=== PATIENT | male | born 1960 | race Caucasian/White ===

== ENCOUNTER → 2025-02-26 | Outpatient (CLI) | payer MEDICARE, OTHER ==
[2025-02-26 12:40] LABS: African American GFR (CKD) 89 (>60 ml/min/1.73 sqM); Blood Urea Nitrogen 31 mg/dL (9-20); Non-African American GFR(CKD) 77 (>60 ml/min/1.73 sqM)
--- NOTE | 2025-02-26 16:30 | CT ---
EXAMINATION TYPE: CT chest w con DATE OF EXAM: 02/26/2025 12:54 PM COMPARISON: Chest radiograph. CLINICAL INDICATION: Male, 64 years old with history of R91.8 OTHER NONSPECIFIC ABNORMAL FINDING OF L NICOLAS F; PHH, chest congestion TECHNIQUE: Multiple axial images were obtained through the chest. Sagittal and coronal reformats were created for review. MIP was performed on a separate workstation. Contrast used:100ml mL of Isovue 300 with IV Contrast (None if empty) Oral contrast used: (None if empty) CT DLP: 163.2 mGycm, Automated exposure control for dose reduction was used. FINDINGS: LUNGS/ PLEURA: No focal consolidation, pneumothorax or pleural effusion. 5 mm right upper lobe ground glass pulmonary nodule series 4 image 25. AIRWAY: Patent and unremarkable. HEART: Size within normal limits.Atherosclerosis of the arterial vasculature. Mild coronary artery ca lcifications present. MEDIASTINUM: No gross evidence of adenopathy. VASCULATURE: No aortic aneurysm. MUSCULOSKELETAL: Mild disc degeneration changes are present throughout the thoracolumbar spine second veronica to osteophyte formation and facet joint arthropathy. Moderate to severe scoliosis changes of the spine. SOFT TISSUES/LYMPH NODES: Unremarkable. LOWER NECK: No significant findings. UPPER ABDOMEN: Gallstone in the gallbladder lumen which is large measuring up to 27 mm. IMPRESSION: 1. No evidence for congestive heart failure. 2. No evidence for acute thoracic process. 3. Groundglass pulmonary nodule in the right upper lobe. No routine follow-up required. Follow up re commendations for incidental pulmonary nodules, if there are any, are per Fleischner?s [employer] or [employer]. https://radiopaedia.org/articles/fleischner-soci sjo-yntjyhsma-vbsqml-recommendations-1?lang=us 4. Large gallstone in the gallbladder. 5. Moderate to severe scoliosis changes of the spine. [facility], , 02/26/2025 4:28 PM
== END | disposition home or self-care (01) ==
LOC: RADCTMAIN 11:55
PROVIDERS: ATTEND Internal Medicine
DX: R91.8 Other nonspecific abnormal finding of lung field (principal); K80.20 Calculus of gallbladder without cholecystitis without obstruction; M41.00 Infantile idiopathic scoliosis, site unspecified
CPT/HCPCS: 82565; 84520; 71260; 36415; Q9967

== ENCOUNTER 2025-03-03 14:28 | Inpatient (IN) | payer MEDICARE, OTHER ==
--- NOTE | 2025-03-03 14:55 | ED ---
Extremity Problem HPI - General Source: patient, RN notes reviewed Mode of arrival: ambulatory Limitations: no limitations <Alissa Crawford - Last Filed: 03/03/25 14:54> - General Source: patient, RN notes reviewed Mode of arrival: ambulatory Limitations: no limitations <Skinny Parra - Last Filed: 03/03/25 20:52> - General Stated complaint: R foot swelling Time Seen by Provider: 03/03/25 14:54 - History of Present Illness Initial comments: Quick note: 64-year-old male presented the ER for evaluation of right foot pain and swelling. Patient states he is a known type II diabetic and is concerned of infection. He denies fevers or chills. (Alissa Crawford) Patient is a 64-year-old male present to the emergency department with concern for ulcer/infection of his foot. Patient states he just noticed this the past day or 2. Patient states only minimal discomfort. Patient does have history of diabetes. Patient states his blood sugars however not always well-controlled. (Skinny Parra) - Related Data Allergies Allergy/AdvReac Type Severity Reaction Status Date / Time No Known Allergies Allergy Verified 03/03/25 15:13 Review of Systems ROS Other: All systems not noted in ROS Statement are negative. <Alissa Crawford - Last Filed: 03/03/25 14:54> ROS Other: All systems not noted in ROS Statement are negative. Constitutional: Denies: fever Eyes: Denies: eye pain ENT: Denies: ear pain Respiratory: Denies: dyspnea Skin: Reports: as per HPI <Skinny Parra - Last Filed: 03/03/25 20:52> ROS Statement: Those systems with pertinent positive or pertinent negative responses have been documented in the HPI. General Exam <Alissa Crawford - Last Filed: 03/03/25 14:54> Limitations: no limitations General appearance: alert, in no apparent distress Head exam: Present: normocephalic Eye exam: Present: normal appearance Respiratory exam: Present: normal lung sounds bilaterally Cardiovascular Exam: Present: regular rate, normal rhythm GI/Abdominal exam: Present: soft. Absent: tenderness Extremities exam: Present: other (Right foot cellulitis) Neurological exam: Present: alert Psychiatric exam: Present: normal affect, normal mood Skin exam: Present: other (Patient has cellulitis majority, mostly distal right foot. Dorsally there is cellulitis and swelling mostly of the second toe with some ulcer formation. On the plantar side there is a large distal callus and ulcer formation proximal to the 1st through 3rd MTPs.) <Skinny Parra - Last Filed: 03/03/25 20:52> - General Exam Comments Initial Comments: Visual Physical Exam Vital signs reviewed General: Well-appearing, nontoxic, no acute distress. Head: Normocephalic, atraumatic Eyes: PERRLA, EOMI ENT: Airway patent Chest: Nonlabored breathing Skin: No visual rash, normal skin tone Neuro: Alert and oriented 3 Musculoskeletal: No gross abnormalities (Alissa Crawford) Course Vital Signs 03/03/25 03/03/25 15:09 20:15 Temperature 98.4 F 98.9 F Pulse Rate 100 98 Respiratory 19 16 Rate Blood Pressure 153/60 139/77 O2 Sat by Pulse 97 100 Oximetry Medical Decision Making <Alissa Crawford - Last Filed: 03/03/25 14:54> - Lab Data Result diagrams: 03/03/25 19:48 <Skinny Parra - Last Filed: 03/03/25 20:52> - Medical Decision Making I performed the quick note portion of this chart. Electronically signed by Alissa Crawford PA-C (Alissa Crawford) Was pt. sent in by a medical professional or institution ([facility], RETAIL MERCHANDISING MANAGER, urgent care, hospital, or [facility]...) When possible be specific @ -No Did you speak to anyone other than the patient for history (EMS, parent, family, police, friend...)? What history was obtained from this source @ -No Did you review nursing and triage notes (agree or disagree)? Why? @ -I reviewed and agree with nursing and triage notes Were old charts reviewed (outside hosp., previous admission, EMS record, old EKG, old radiological studies, urgent care reports/EKG's, [facility] records)? Report findings @ -No old charts were reviewed Differential Diagnosis (chest pain, altered mental status, abdominal pain women, abdominal pain men, vaginal bleeding, weakness, fever, dyspnea, syncope, headache, dizziness, GI bleed, back pain, seizure, CVA, palpatations, mental health, musculoskeletal)? @ -Differential Fever: Pneumonia, viral URI, endocarditis, myocarditis, pericarditis, otitis, sinusitis, peritonsillar Abscess, retropharyngeal Abscess, epiglottitis, peritonitis, appendicitis, Guillermina cystitis, diverticulitis, hepatitis, colitis, UTI, PID, TOA, pyelonephritis, prostatitis, epididymitis, meningitis, encephalitis, pulmonary embolism, CVA, thyroid storm, pancreatitis, adrenal crisis, cavernous sinus thrombosis, this is not meant to be an all-inclusive list. EKG interpreted by me (3pts min.). @ -As above X-rays interpreted by me (1pt min.). @ -X-ray of the foot without evidence of osteomyelitis CT interpreted by me (1pt min.). @ -None done U/S interpreted by me (1pt. min.). @ -None done What testing was considered but not performed or refused? (CT, X-rays, U/S, labs)? Why? @ -None What meds were considered but not given or refused? Why? @ -None Did you discuss the management of the patient with other professionals (professionals i.e. , PA, RETAIL MERCHANDISING MANAGER, lab, RT, psych nurse, social problems specialist, quality assistant, teacher, major gifts officer, case manager specialist)? Give summary @ -Case was discussed with Dr. Paula who will admit his patient Was smoking cessation discussed for >3mins.? @ -No Was critical care preformed (if so, how long)? @ -31 minutes critical care time Were there social determinants of health that impacted care today? How? (Homelessness, low income, unemployed, alcoholism, drug addiction, transportation, low edu. Level, literacy, decrease access to med. care, residential, rehab)? @ -No Was there de-escalation of care discussed even if they declined (Discuss DNR or withdrawal of care, Hospice)? DNR status @ -No What co-morbidities impacted this encounter? (DM, HTN, Smoking, COPD, CAD, Cancer, CVA, ARF, Chemo, Hep., AIDS, mental health diagnosis, sleep apnea, morbid obesity)? @ -Diabetic with previous foot ulcer Was patient admitted / discharged? Hospital course, mention meds given and route, prescriptions, significant lab abnormalities, going to OR and other pertinent info. @ -Patient presents with concern for callus of his foot. There is concern for underlying ulcer. Patient has definite infection/cellulitis extending to the proximal foot. Patient does have elevated white blood cell count and there is concern for sepsis diagnosed at 2050. Orders have already been placed for blood culture, lactic acid, and IV antibiotics. Patient is made aware of plan. Admission orders written. Undiagnosed new problem with uncertain prognosis? @ -No Drug Therapy requiring intensive monitoring for toxicity (Heparin, Nitro, Insulin, Cardizem)? @ -No Were any procedures done? @ -No Diagnosis/symptom? @ -Cellulitis right foot with diabetic foot ulcer Acute, or Chronic, or Acute on Chronic? @ -Acute Uncomplicated (without systemic symptoms) or Complicated (systemic symptoms)? @ -Default Side effects of treatment? @ -No Exacerbation, Progression, or Severe Exacerbation? @ -No Poses a threat to life or bodily function? How? (Chest pain, [place], [place], pneumonia, PE, COPD, DKA, ARF, appy, cholecystitis, CVA, Diverticulitis, Homicidal, Amber cidal, threat to staff... and all critical care pts) @ -Threat to limb function (Skinny Parra) - Lab Data Lab Results 03/03/25 03/03/25 03/03/25 Range/Units 19:48 19:48 19:48 WBC 12.39 H (4.50-10.00) 10*3/uL RBC 3.69 L (4.40-5.60) 10*6/uL Hgb 10.8 L (13.0-17.0) g/dL Hct 31.3 L (39.6-50.0) % MCV 84.8 (80.0-97.0) fL MCH 29.3 (27.0-32.0) pg MCHC 34.5 (32.0-37.0) g/dL Plt Count 417 (140-440) 10*3/uL MPV 8.6 L (9.5-12.2) fL Immature Gran % (Auto) 0.3 % Neutrophils % 69.3 % Lymphocytes % 14.7 % Monocytes % 13.2 % Eosinophils % 1.9 % Basophils % 0.6 % Immature Gran # 0.04 (0.00-0.04) 10*3/uL Neutrophils # 8.59 H (1.80-7.70) 10*3/uL Lymphocytes # 1.82 (0.90-5.00) 10*3/uL Monocytes # 1.63 H (0.20-1.00) 10*3/uL Eosinophils # 0.23 (0.04-0.35) 10*3/uL Basophils # 0.08 (0.00-0.10) 10*3/uL PT 11.4 (10.0-12.5) sec INR 1.0 (<1.2) APTT 29.6 (22.0-30.0) sec Plasma Lactic Acid Ramírez 0.9 (0.7-2.0) mmol/L Critical Care Time Critical Care Time: Yes <Skinny Parra - Last Filed: 03/03/25 20:52> Disposition <Alissa Crawford - Last Filed: 03/03/25 14:54> Is patient prescribed a controlled substance at d/c from ED?: No Time of Disposition: 20:52 <Skinny Parra - Last Filed: 03/03/25 20:52> Clinical Impression: Cellulitis of right foot Disposition: ADMITTED IP TO THIS HOSP Referrals: Beverly Paula MD [Primary Care Provider] - 1-2 days
--- NOTE | 2025-03-03 15:59 | XR ---
EXAMINATION TYPE: XR foot complete RT DATE OF EXAM: 03/03/2025 3:50 PM COMPARISON: None. CLINICAL INDICATION: Male, 64 years old with history of pain and edema, pain TECHNIQUE: 3 view(s) obtained. FINDINGS: No acute fracture or dislocation evident. Alignment appears preserved. Joint spaces are preserved. So ft tissues appear normal. No suspicious cortical erosions are evident. Follow-up can be performed 7-10 days from acute trauma for continued pain IMPRESSION: 1. No acute osseous abnormality right foot [facility], , 03/03/2025 3:56 PM
[2025-03-03] MEDS ORDERED: VANCOMYCIN IV PER PHARMACY 1 EACH MISC MISCELLANE PRN (19:18)
[2025-03-03] MEDS: AMPICILLIN-SULBACTAM 1.5 GM in SODIUM CHLORIDE 0.9% 50 ML IVPB ONE (19:53)
[2025-03-03 19:57] LABS: Basophils # (A) 0.08 10*3/uL (0.00-0.10); Basophils % (A) 0.6 %; Eosinophils # (A) 0.23 10*3/uL (0.04-0.35); Eosinophils % (A) 1.9 %; HCT 31.3 % (39.6-50.0); HGB 10.8 g/dL (13.0-17.0); Lymphocytes # (A) 1.82 10*3/uL (0.90-5.00); Lymphocytes % (A) 14.7 %; MCH 29.3 pg (27.0-32.0); MCHC 34.5 g/dL (32.0-37.0); MCV 84.8 fL (80.0-97.0); Monocytes # (A) 1.63 10*3/uL (0.20-1.00); Monocytes % (A) 13.2 %; Neutrophils # (A) 8.59 10*3/uL (1.80-7.70); Neutrophils % (A) 69.3 %; Platelet Count 417 10*3/uL (140-440); RBC 3.69 10*6/uL (4.40-5.60); RDW 12.7 % (11.5-14.5); WBC 12.39 10*3/uL (4.50-10.00)
[2025-03-03 20:14] LABS: INR 1.0 (<1.2); Partial Thromboplastin Time 29.6 sec (22.0-30.0); Prothrombin Time 11.4 sec (10.0-12.5)
[2025-03-03] MEDS ORDERED: NALOXONE 0.4 MG/ML 1 ML VIAL IV PRN (20:52)
[2025-03-03] MEDS: SODIUM CHLORIDE 0.9% 1,000 ML IV SCH (21:03)
[2025-03-03] MEDS: VANCOMYCIN 1,000 MG in SODIUM CHLORIDE 0.9% 250 ML IVPB ONE (21:03)
[2025-03-03 21:19] LABS: ALT 21 U/L (4-49); AST 19 U/L (17-59); African American GFR (CKD) >90 (>60 ml/min/1.73 sqM); Albumin 4.2 g/dL (3.5-5.0); Alkaline Phosphatase 92 U/L (38-126); Anion Gap 14 mmol/L; Blood Urea Nitrogen 19 mg/dL (9-20); Calcium 9.5 mg/dL (8.4-10.2); Carbon Dioxide 20 mmol/L (22-30); Chloride 100 mmol/L (98-107); Glucose 100 mg/dL (74-99); Non-African American GFR(CKD) 90 (>60 ml/min/1.73 sqM); Potassium 3.8 mmol/L (3.5-5.1); Sodium 134 mmol/L (137-145); Total Protein 7.7 g/dL (6.3-8.2)
[2025-03-04] MEDS: AMPICILLIN-SULBACTAM 1.5 GM in SODIUM CHLORIDE 0.9% 50 ML IVPB SCH (00:55)
[2025-03-04 05:58] LABS: Glucose,Whole Blood 155 mg/dL (70-110)
[2025-03-04 06:48] LABS: Basophils # (A) 0.10 10*3/uL (0.00-0.10); Basophils % (A) 1.1 %; Eosinophils # (A) 0.42 10*3/uL (0.04-0.35); Eosinophils % (A) 4.7 %; HCT 29.6 % (39.6-50.0); HGB 10.0 g/dL (13.0-17.0); Lymphocytes # (A) 1.49 10*3/uL (0.90-5.00); Lymphocytes % (A) 16.6 %; MCH 28.9 pg (27.0-32.0); MCHC 33.8 g/dL (32.0-37.0); MCV 85.5 fL (80.0-97.0); Monocytes # (A) 1.30 10*3/uL (0.20-1.00); Monocytes % (A) 14.4 %; Neutrophils # (A) 5.64 10*3/uL (1.80-7.70); Neutrophils % (A) 62.6 %; Platelet Count 399 10*3/uL (140-440); RBC 3.46 10*6/uL (4.40-5.60); RDW 12.5 % (11.5-14.5); WBC 9.00 10*3/uL (4.50-10.00)
[2025-03-04 07:03] LABS: African American GFR (CKD) >90 (>60 ml/min/1.73 sqM); Anion Gap 8 mmol/L; Blood Urea Nitrogen 16 mg/dL (9-20); Calcium 8.8 mg/dL (8.4-10.2); Carbon Dioxide 23 mmol/L (22-30); Chloride 108 mmol/L (98-107); Glucose 159 mg/dL (74-99); Non-African American GFR(CKD) >90 (>60 ml/min/1.73 sqM); Potassium 3.5 mmol/L (3.5-5.1); Sodium 139 mmol/L (137-145)
[2025-03-04] MEDS: VANCOMYCIN 1,000 MG in SODIUM CHLORIDE 0.9% 250 ML IVPB SCH (09:33)
[2025-03-04] MEDS ORDERED: DEXTROSE 50% SYRINGE 50 ML IVP PRN ×2 (11:06)
[2025-03-04 11:50] LABS: Glucose,Whole Blood 264 mg/dL (70-110)
[2025-03-04] MEDS: INSULIN LISPRO (HumaLOG) 100 UNIT/ML 10 mL VL SQ SCH (11:56)
--- NOTE | 2025-03-04 13:04 | P.HPIM ---
History of Present Illness H&P Date: 03/04/25 Shaw Bain is a 64-year-old male patient who presented with concerns of right foot cellulitis. Patient reports he has had issues with a callus before but it had completely healed in about a week ago started to come back and he noticed redness and pain over the past few days. Patient denies fever. Patient does have a past medical history of diabetes mellitus. Patient denies any recent injury. Additional medical history includes anemia and glaucoma. Foot x-ray completed in ER showing no acute osseous abnormality of the right foot. Upon exam patient noted to have significant redness to right foot and metatarsal area. At this time patient will be started on IV antibiotics Vanco and Unasyn. Blood culture ordered. Infectious disease services consulted. Patient denies chest pain or shortness of breath. Patient denies nausea vomiting or diarrhea. Patient denies any urinary burning or frequency. Lab work completed showing white blood cell 12.39, hemoglobin 10.8, sodium 134, creatinine 0.90, bun 19. Vital signs temp 98.0, heart rate 85, respiratory rate 18, blood pressure 128/70 with pulse ox 99% on room air Review of Systems Please refer to HPI otherwise unremarkable Past Medical History Past Medical History: Diabetes Mellitus Additional Past Medical History / Comment(s): anemia, glaucoma History of Any Multi-Drug Resistant Organisms: None Reported Past Surgical History: Orthopedic Surgery Past Psychological History: No Psychological Hx Reported Smoking Status: Never smoker Past Alcohol Use History: None Reported Past Drug Use History: None Reported Medications and Allergies Home Medications Medication Instructions Recorded Confirmed Type Insulin Glargine,Hum.rec.anlog 10 - 20 units SQ HS 03/04/25 03/04/25 History [Lantus Solostar Pen] Latanoprost [Latanoprost 0.005%] 1 drop BOTH EYES HS 03/04/25 03/04/25 History Multivitamins, Thera [Multivitamin 1 tab PO DAILY 03/04/25 03/04/25 History (formulary)] glipiZIDE [Glucotrol] 5 mg PO AC-BRKFST 03/04/25 03/04/25 History metFORMIN HCL 1,000 mg PO BID 03/04/25 03/04/25 History Allergies Allergy/AdvReac Type Severity Reaction Status Date / Time No Known Allergies Allergy Verified 03/04/25 10:04 Physical Exam Vitals: Vital Signs Temp Pulse Pulse Resp BP BP Pulse Ox 03/04/25 07:00 98.0 F 85 18 128/70 99 03/04/25 02:00 98.2 F 86 16 166/85 99 03/03/25 22:43 98.1 F 91 19 159/80 100 03/03/25 22:27 98.4 F 85 18 138/96 98 03/03/25 20:15 98.9 F 98 16 139/77 100 03/03/25 15:09 98.4 F 100 19 153/60 97 Intake and Output 03/03/25 03/04/25 03/04/25 22:59 06:59 14:59 Output Total 350 Balance -350 Output: Urine 350 Other: Voiding Method Indwelling Catheter Indwelling Catheter # Bowel Movements 0 Weight 52.163 kg Head normocephalic Neck supple Lungs clear to auscultation bilaterally no wheezing or crackles Heart regular rate and rhythm S1-S2, no rub or gallop Abdomen is soft nontender nondistended positive bowel sounds no hepatosplenomegaly Extremities no edema. Right foot erythema noted to 1st and 2nd metatarsal Neuro alert and orientated to 3 Results CBC & Chem 7: 03/04/25 06:22 03/04/25 06:22 Labs: Abnormal Lab Results - Last 24 Hours (Table) 03/03/25 03/03/25 03/04/25 Range/Units 19:48 19:48 05:56 WBC 12.39 H (4.50-10.00) 10*3/uL RBC 3.69 L (4.40-5.60) 10*6/uL Hgb 10.8 L (13.0-17.0) g/dL Hct 31.3 L (39.6-50.0) % MPV 8.6 L (9.5-12.2) fL Immature Gran # (0.00-0.04) 10*3/uL Neutrophils # 8.59 H (1.80-7.70) 10*3/uL Monocytes # 1.63 H (0.20-1.00) 10*3/uL Eosinophils # (0.04-0.35) 10*3/uL Sodium 134 L (137-145) mmol/L Chloride (98-107) mmol/L Carbon Dioxide 20 L (22-30) mmol/L Glucose 100 H (74-99) mg/dL POC Glucose (mg/dL) 155 H (70-110) mg/dL 03/04/25 03/04/25 03/04/25 Range/Units 06:22 06:22 11:48 WBC (4.50-10.00) 10*3/uL RBC 3.46 L (4.40-5.60) 10*6/uL Hgb 10.0 L (13.0-17.0) g/dL Hct 29.6 L (39.6-50.0) % MPV 8.5 L (9.5-12.2) fL Immature Gran # 0.05 H (0.00-0.04) 10*3/uL Neutrophils # (1.80-7.70) 10*3/uL Monocytes # 1.30 H (0.20-1.00) 10*3/uL Eosinophils # 0.42 H (0.04-0.35) 10*3/uL Sodium (137-145) mmol/L Chloride 108 H (98-107) mmol/L Carbon Dioxide (22-30) mmol/L Glucose 159 H (74-99) mg/dL POC Glucose (mg/dL) 264 H (70-110) mg/dL Thrombosis Risk Factor Assmnt - Choose All That Apply Any of the Below Risk Factors Present?: Yes Other Risk Factors: Yes Each Risk Factor Represents 2 Points: Age 61-74 years Thrombosis Risk Factor Assessment Total Risk Factor Score: 2 Thrombosis Risk Factor Assessment Level: Low Risk Assessment and Plan Assessment: 1. Right foot cellulitis 2. History of diabetes mellitus 3. History of anemia 4. History of glaucoma DVT prophylaxis Lovenox. GI prophylax Protonix patient started on IV antibiotics Blood culture ordered Infectious disease services consulted Repeat labs ordered
[2025-03-04 14:49] VITALS: BMI 18.0
[2025-03-04 17:11] LABS: Glucose,Whole Blood 285 mg/dL (70-110)
[2025-03-04] MEDS: AMPICILLIN-SULBACTAM 3 GM in SODIUM CHLORIDE 0.9% 100 ML IVPB SCH (17:19)
[2025-03-04] MEDS ORDERED: AMPICILLIN-SULBACTAM 3 GM in SODIUM CHLORIDE 0.9% 50 ML IVPB SCH (18:00)
[2025-03-04 20:26] LABS: Glucose,Whole Blood 280 mg/dL (70-110)
[2025-03-04] MEDS: INSULIN GLARGINE (LANTUS) 100 UNIT/ML SYR SQ SCH (20:57)
[2025-03-04] MEDS: LATANOPROST 0.005% OPHTH DROPS 2.5 ML BTL BOTH EYES SCH (20:57)
[2025-03-04] MEDS: metFORMIN 500 MG TAB PO SCH (20:58)
--- NOTE | 2025-03-04 22:00 | PN ---
Date of Consultation: 03/04/2025 SUBJECTIVE: This is a 64-year-old gentleman, who came to the emergency room, got admitted with history of right foot infected callus on the plantar aspect involving the big toe and the second toe and marked redness on the plantar dorsal aspect of the foot and marked tenderness noted. This has been happening for the last week or so. The patient had a callus for a long time, but his redness and skin changes started recently. MEDICAL HISTORY: History of diabetes, under control with medication. SURGICAL HISTORY: The patient has a history of trauma to the right femur, had an internal fixation of the right femur and also the patient had surgery of the left femur in the past and the patient has a mikal placed. The patient has a right elbow surgery in the past due to fall. The patient also had eye surgery done in the past. PHYSICAL EXAMINATION: On examination, the patient was seen in his room. NECK: Supple. No bruit appreciated. CHEST: First and second sounds present. The patient has some history of congestion. According the patient, he had a CT scan done in the past. At this point, we see good air entry in both lungs. Few crackles at the lung bases noted. ABDOMEN: Soft, nontender. VASCULAR: Femorals are 2+ bilateral, dorsal pedis is 1+ bilaterally. The patient has a scar on both lower extremities due to the fracture femur. The patient has a cyst below the knee joint. According the patient, he had this since childhood. PLAN: Plan is discussed with the patient. The patient will need debridement and excision of the callus, possible 2nd or big toe removal with wound VAC. We kept the patient n.p.o. after the morning breakfast and we will arrange for surgery. MMODL / IJN: [id number] / SADIE
--- NOTE | 2025-03-04 22:10 | P.CONS ---
History of Present Illness - Reason for Consult Consult date: 03/04/25 Cellulitis right foot Requesting physician: Skinny Parra - Chief Complaint Right foot pain and swelling x few days - History of Present Illness Patient is a 64-year-old male with a past medical history significant for type 2 diabetes mellitus anemia, presenting to the concerning for the right foot pain and swelling patient with that he did have a callus on the plantar aspect of his right foot which he has for a while however over the weekend he noticed having increasing swelling redness to the right foot area with associated pain patient described the pain to be sharp moderate intensity worse when he walks on it has been complaining of some chills on presentation to the hospital patient was afebrile no fever have been called subsequently patient was mildly tachycardic but not hypotensive or hypoxic patient did have white count of 12.39 with a left shift creatinine 0.90 electrolytes are normal liver enzymes are normal patient did have x-ray of the foot no acute bony abnormality patient was started on Unasyn and vancomycin and admit to the hospital infectious disease was consulted for further management of antibiotic therapy Review of Systems Positive point and negatives has been mentioned in the HPI, complete review of systems was performed and all other systems are negative Past Medical History Past Medical History: Diabetes Mellitus Additional Past Medical History / Comment(s): anemia, glaucoma History of Any Multi-Drug Resistant Organisms: None Reported Past Surgical History: Orthopedic Surgery Past Psychological History: No Psychological Hx Reported Smoking Status: Never smoker Past Alcohol Use History: None Reported Past Drug Use History: None Reported Medications and Allergies Home Medications Medication Instructions Recorded Confirmed Type Insulin Glargine,Hum.rec.anlog 10 - 20 units SQ HS 03/04/25 03/04/25 History [Lantus Solostar Pen] Latanoprost [Latanoprost 0.005%] 1 drop BOTH EYES HS 03/04/25 03/04/25 History Multivitamins, Thera [Multivitamin 1 tab PO DAILY 03/04/25 03/04/25 History (formulary)] glipiZIDE [Glucotrol] 5 mg PO AC-BRKFST 03/04/25 03/04/25 History metFORMIN HCL 1,000 mg PO BID 03/04/25 03/04/25 History Allergies Allergy/AdvReac Type Severity Reaction Status Date / Time No Known Allergies Allergy Verified 03/04/25 10:04 Physical Exam Vitals: Vital Signs Temp Pulse Pulse Resp BP BP Pulse Ox 03/04/25 07:00 98.0 F 85 18 128/70 99 03/04/25 02:00 98.2 F 86 16 166/85 99 03/03/25 22:43 98.1 F 91 19 159/80 100 03/03/25 22:27 98.4 F 85 18 138/96 98 03/03/25 20:15 98.9 F 98 16 139/77 100 03/03/25 15:09 98.4 F 100 19 153/60 97 Intake and Output 03/03/25 03/04/25 03/04/25 22:59 06:59 14:59 Output Total 350 Balance -350 Output: Urine 350 Other: Voiding Method Indwelling Catheter Indwelling Catheter # Bowel Movements 0 Weight 52.163 kg GENERAL DESCRIPTION: Middle-age male lying in bed, no distress. No tachypnea or accessory muscle of respiration use. HEENT: Shows Pallor , no scleral icterus. Oral mucous membrane is dry. NECK: Trachea central, no thyromegaly. LUNGS: Unlabored breathing. Clear to auscultation anteriorly. No wheeze or crackle. HEART: S1, S2, regular rate and rhythm. No loud murmur ABDOMEN: Soft, no tenderness , guarding or rigidity, no organomegaly EXTREMITIES: Right foot plantar aspect did have an infected callus with a pustule redness on the dorsal aspect of the right foot no drainage SKIN: No rash, no masses palpable. NEUROLOGICAL: The patient is awake, alert, oriented x3, mood and affect normal. Results CBC & Chem 7: 03/04/25 06:22 03/04/25 06:22 Labs: Abnormal Lab Results - Last 24 Hours (Table) 03/03/25 03/03/25 03/04/25 Range/Units 19:48 19:48 05:56 WBC 12.39 H (4.50-10.00) 10*3/uL RBC 3.69 L (4.40-5.60) 10*6/uL Hgb 10.8 L (13.0-17.0) g/dL Hct 31.3 L (39.6-50.0) % MPV 8.6 L (9.5-12.2) fL Immature Gran # (0.00-0.04) 10*3/uL Neutrophils # 8.59 H (1.80-7.70) 10*3/uL Monocytes # 1.63 H (0.20-1.00) 10*3/uL Eosinophils # (0.04-0.35) 10*3/uL Sodium 134 L (137-145) mmol/L Chloride (98-107) mmol/L Carbon Dioxide 20 L (22-30) mmol/L Glucose 100 H (74-99) mg/dL POC Glucose (mg/dL) 155 H (70-110) mg/dL 03/04/25 03/04/25 Range/Units 06:22 06:22 WBC (4.50-10.00) 10*3/uL RBC 3.46 L (4.40-5.60) 10*6/uL Hgb 10.0 L (13.0-17.0) g/dL Hct 29.6 L (39.6-50.0) % MPV 8.5 L (9.5-12.2) fL Immature Gran # 0.05 H (0.00-0.04) 10*3/uL Neutrophils # (1.80-7.70) 10*3/uL Monocytes # 1.30 H (0.20-1.00) 10*3/uL Eosinophils # 0.42 H (0.04-0.35) 10*3/uL Sodium (137-145) mmol/L Chloride 108 H (98-107) mmol/L Carbon Dioxide (22-30) mmol/L Glucose 159 H (74-99) mg/dL POC Glucose (mg/dL) (70-110) mg/dL Assessment and Plan (1) Diabetic infection of right foot Current Visit: Yes Status: Acute Code(s): E11.628 - TYPE 2 DIABETES MELLITUS WITH OTHER SKIN COMPLICATIONS; L08.9 - LOCAL INFECTION OF THE SKIN AND SUBCUTANEOUS TISSUE, UNSP SNOMED Code(s): 898667576 (2) Cellulitis of right foot Current Visit: Yes Status: Acute Code(s): L03.115 - CELLULITIS OF RIGHT LOWER LIMB SNOMED Code(s): 93888239185615387 Plan: 1patient presented hospital with right foot pain swelling and redness in this patient who did have a callus on the plantar aspect with evidence of a pustule concerning for infected callus and abscess formation and will need to cover for the polymicrobial vandana SEC to diabetic foot infection 2-we will consult vascular surgery for debridement of the infected callus and deep culture 3-increase the dose of Unasyn to 3 g every 6 hours and continue with vancomycin pharmacy to dose We will follow on clinical condition and cultures to further adjust medication if needed Thank you for this consultation we will follow the patient along with you Dictation was produced using [employer] dictation software. please excuse any grammatical, word or spelling errors. Time with Patient: Greater than 30
[2025-03-05 06:09] LABS: Glucose,Whole Blood 147 mg/dL (70-110)
[2025-03-05] MEDS: PANTOPRAZOLE 40 MG TABLET PO SCH (06:16)
[2025-03-05 06:37] LABS: Basophils # (A) 0.09 10*3/uL (0.00-0.10); Basophils % (A) 0.8 %; Eosinophils # (A) 0.41 10*3/uL (0.04-0.35); Eosinophils % (A) 3.6 %; HCT 26.8 % (39.6-50.0); HGB 9.3 g/dL (13.0-17.0); Lymphocytes # (A) 1.72 10*3/uL (0.90-5.00); Lymphocytes % (A) 15.1 %; MCH 29.4 pg (27.0-32.0); MCHC 34.7 g/dL (32.0-37.0); MCV 84.8 fL (80.0-97.0); Monocytes # (A) 1.59 10*3/uL (0.20-1.00); Monocytes % (A) 13.9 %; Neutrophils # (A) 7.52 10*3/uL (1.80-7.70); Neutrophils % (A) 66.0 %; Platelet Count 371 10*3/uL (140-440); RBC 3.16 10*6/uL (4.40-5.60); RDW 12.4 % (11.5-14.5); WBC 11.40 10*3/uL (4.50-10.00)
[2025-03-05 07:12] LABS: ALT 15 U/L (4-49); AST 16 U/L (17-59); African American GFR (CKD) >90 (>60 ml/min/1.73 sqM); Albumin 3.1 g/dL (3.5-5.0); Alkaline Phosphatase 62 U/L (38-126); Anion Gap 6 mmol/L; Blood Urea Nitrogen 13 mg/dL (9-20); Calcium 8.2 mg/dL (8.4-10.2); Carbon Dioxide 24 mmol/L (22-30); Chloride 107 mmol/L (98-107); Glucose 133 mg/dL (74-99); Non-African American GFR(CKD) >90 (>60 ml/min/1.73 sqM); Potassium 3.1 mmol/L (3.5-5.1); Sodium 137 mmol/L (137-145); Total Protein 5.9 g/dL (6.3-8.2)
[2025-03-05] MEDS: glipiZIDE 5 MG TAB PO SCH (08:06)
--- NOTE | 2025-03-05 08:54 | P.GSCN ---
History of Present Illness Consult date: 03/04/25 History of present illness: 64 yo male in the hospital with right foot ulcer and cellulitis; We were asked to see to evaluate his catheter. The problem with the catheter began back in October when he was in [facility]. He is found to be in urine retention. He was seen by urology there. Several attempts at spontaneous voiding trials failed. He was seen as an outpatient where testing was done and he was determined what sounds like to have an atonic bladder. It was recommended that he either go on self intermittent catheterization or chronic indwelling catheters. He declines self intermittent catheterization and thus he is having nursing staff change his catheter on a monthly basis. In the interim he has moved to the [place] area. His catheter is due to be changed at this point in time. Review of Systems All systems: negative - Constitutional Denies fever, Denies weight loss - EENT Eyes: denies blurred vision Ears, nose, mouth and throat: Denies dysphagia - Cardiovascular Denies chest pain, Denies shortness of breath - Respiratory Denies cough, Denies 7 - Gastrointestinal Reports as per HPI - Genitourinary Denies dysuria, Denies hematuria - Integumentary Denies rash, Denies unusual bruising - Neurological Denies headaches, Denies syncope - Hematologic/Lymphatic Denies easy bleeding, Denies easy bruising Past Medical History Past Medical History: Diabetes Mellitus Additional Past Medical History / Comment(s): anemia, glaucoma History of Any Multi-Drug Resistant Organisms: None Reported Past Surgical History: Orthopedic Surgery Past Psychological History: No Psychological Hx Reported Smoking Status: Never smoker Past Alcohol Use History: None Reported Past Drug Use History: None Reported Medications and Allergies Home Medications Medication Instructions Recorded Confirmed Type Insulin Glargine,Hum.rec.anlog 10 - 20 units SQ HS 03/04/25 03/04/25 History [Lantus Solostar Pen] Latanoprost [Latanoprost 0.005%] 1 drop BOTH EYES HS 03/04/25 03/04/25 History Multivitamins, Thera [Multivitamin 1 tab PO DAILY 03/04/25 03/04/25 History (formulary)] glipiZIDE [Glucotrol] 5 mg PO AC-BRKFST 03/04/25 03/04/25 History metFORMIN HCL 1,000 mg PO BID 03/04/25 03/04/25 History Allergies Allergy/AdvReac Type Severity Reaction Status Date / Time No Known Allergies Allergy Verified 03/04/25 10:04 Surgical - Exam Vital Signs Temp Pulse Resp BP Pulse Ox 98.4 F 100 19 153/60 97 03/03/25 15:09 03/03/25 15:09 03/03/25 15:09 03/03/25 15:09 03/03/25 15:09 - Genitourinary indwelling catheter indwelling Daly catheter with clear urine Results - Labs 03/05/25 06:10 03/05/25 06:10 Abnormal Lab Results - Last 24 Hours (Table) 03/03/25 03/03/25 03/04/25 Range/Units 19:48 19:48 05:56 WBC 12.39 H (4.50-10.00) 10*3/uL RBC 3.69 L (4.40-5.60) 10*6/uL Hgb 10.8 L (13.0-17.0) g/dL Hct 31.3 L (39.6-50.0) % MPV 8.6 L (9.5-12.2) fL Immature Gran # (0.00-0.04) 10*3/uL Neutrophils # 8.59 H (1.80-7.70) 10*3/uL Monocytes # 1.63 H (0.20-1.00) 10*3/uL Eosinophils # (0.04-0.35) 10*3/uL Sodium 134 L (137-145) mmol/L Chloride (98-107) mmol/L Carbon Dioxide 20 L (22-30) mmol/L Glucose 100 H (74-99) mg/dL POC Glucose (mg/dL) 155 H (70-110) mg/dL 03/04/25 03/04/25 03/04/25 Range/Units 06:22 06:22 11:48 WBC (4.50-10.00) 10*3/uL RBC 3.46 L (4.40-5.60) 10*6/uL Hgb 10.0 L (13.0-17.0) g/dL Hct 29.6 L (39.6-50.0) % MPV 8.5 L (9.5-12.2) fL Immature Gran # 0.05 H (0.00-0.04) 10*3/uL Neutrophils # (1.80-7.70) 10*3/uL Monocytes # 1.30 H (0.20-1.00) 10*3/uL Eosinophils # 0.42 H (0.04-0.35) 10*3/uL Sodium (137-145) mmol/L Chloride 108 H (98-107) mmol/L Carbon Dioxide (22-30) mmol/L Glucose 159 H (74-99) mg/dL POC Glucose (mg/dL) 264 H (70-110) mg/dL 03/04/25 Range/Units 17:10 WBC (4.50-10.00) 10*3/uL RBC (4.40-5.60) 10*6/uL Hgb (13.0-17.0) g/dL Hct (39.6-50.0) % MPV (9.5-12.2) fL Immature Gran # (0.00-0.04) 10*3/uL Neutrophils # (1.80-7.70) 10*3/uL Monocytes # (0.20-1.00) 10*3/uL Eosinophils # (0.04-0.35) 10*3/uL Sodium (137-145) mmol/L Chloride (98-107) mmol/L Carbon Dioxide (22-30) mmol/L Glucose (74-99) mg/dL POC Glucose (mg/dL) 285 H (70-110) mg/dL Diabetes panel 03/03/25 03/04/25 Range/Units 19:48 06:22 Sodium 134 L 139 (137-145) mmol/L Potassium 3.8 3.5 (3.5-5.1) mmol/L Chloride 100 108 H (98-107) mmol/L Carbon Dioxide 20 L 23 (22-30) mmol/L BUN 19 16 (9-20) mg/dL Creatinine 0.90 0.79 (0.66-1.25) mg/dL Glucose 100 H 159 H (74-99) mg/dL Calcium 9.5 8.8 (8.4-10.2) mg/dL AST 19 (17-59) U/L ALT 21 (4-49) U/L Alkaline Phosphatase 92 (38-126) U/L Total Protein 7.7 (6.3-8.2) g/dL Albumin 4.2 (3.5-5.0) g/dL Calcium panel 03/03/25 03/04/25 Range/Units 19:48 06:22 Calcium 9.5 8.8 (8.4-10.2) mg/dL Albumin 4.2 (3.5-5.0) g/dL Pituitary panel 03/03/25 03/04/25 Range/Units 19:48 06:22 Sodium 134 L 139 (137-145) mmol/L Potassium 3.8 3.5 (3.5-5.1) mmol/L Chloride 100 108 H (98-107) mmol/L Carbon Dioxide 20 L 23 (22-30) mmol/L BUN 19 16 (9-20) mg/dL Creatinine 0.90 0.79 (0.66-1.25) mg/dL Glucose 100 H 159 H (74-99) mg/dL Calcium 9.5 8.8 (8.4-10.2) mg/dL Adrenal panel 03/03/25 03/04/25 Range/Units 19:48 06:22 Sodium 134 L 139 (137-145) mmol/L Potassium 3.8 3.5 (3.5-5.1) mmol/L Chloride 100 108 H (98-107) mmol/L Carbon Dioxide 20 L 23 (22-30) mmol/L BUN 19 16 (9-20) mg/dL Creatinine 0.90 0.79 (0.66-1.25) mg/dL Glucose 100 H 159 H (74-99) mg/dL Calcium 9.5 8.8 (8.4-10.2) mg/dL Total Bilirubin 0.9 (0.2-1.3) mg/dL AST 19 (17-59) U/L ALT 21 (4-49) U/L Alkaline Phosphatase 92 (38-126) U/L Total Protein 7.7 (6.3-8.2) g/dL Albumin 4.2 (3.5-5.0) g/dL Assessment and Plan Assessment: Impression; cellulitis rt foot, indwelling catheter., Chronic. Probable hypotonic neurogenic bladder. Recommendations: The patient should have his catheter changed during this hospitalization. He can be followed in our office where in the future he would need a repeat cystometrogram to clarify whether his bladder is recuperated enough to repeat of voiding trial or consider lower tract evaluation to relieve any obstruction he may have. This has been discussed with the patient.
[2025-03-05] MEDS: ENOXAPARIN 40 MG/0.4 ML SYRINGE SQ SCH (09:34)
[2025-03-05] MEDS: MULTIVITAMINS, THERA 1 EACH TAB PO SCH (09:40)
[2025-03-05 11:31] LABS: Glucose,Whole Blood 111 mg/dL (70-110)
[2025-03-05] MEDS: IV FLUID CONTINUATION 500 ML IV ONE (15:15)
[2025-03-05 15:32] LABS: Glucose,Whole Blood 113 mg/dL (70-110)
[2025-03-05] MEDS ORDERED: KETAMINE HCL IN 0.9 % NACL 50 MG/5 ML SYRINGE ONE (15:50)
[2025-03-05] MEDS ORDERED: PROPOFOL 10 MG/ML 20 ML VIAL IV ONE (15:50)
[2025-03-05] MEDS ORDERED: MIDAZOLAM 2 MG/2 ML VIAL ONE (15:50)
[2025-03-05] MEDS: LIDOCAINE 1% INJ 10MG/ML (20 ML MDV) SQ ONE ×2 (16:05)
--- NOTE | 2025-03-05 16:21 | P.PN ---
Subjective Progress Note Date: 03/05/25 Shaw Bain is a 64-year-old male patient who presented with concerns of right foot cellulitis. Patient reports he has had issues with a callus before but it had completely healed in about a week ago started to come back and he noticed redness and pain over the past few days. Patient denies fever. Patient does have a past medical history of diabetes mellitus. Patient denies any recent injury. Additional medical history includes anemia and glaucoma. Foot x-ray completed in ER showing no acute osseous abnormality of the right foot. Upon exam patient noted to have significant redness to right foot and metatarsal area. At this time patient will be started on IV antibiotics Vanco and Unasyn. Blood culture ordered. Infectious disease services consulted. Patient denies chest pain or shortness of breath. Patient denies nausea vomiting or diarrhea. Patient denies any urinary burning or frequency. Lab work completed showing white blood cell 12.39, hemoglobin 10.8, sodium 134, creatinine 0.90, bun 19. Vital signs temp 98.0, heart rate 85, respiratory rate 18, blood pressure 128/70 with pulse ox 99% on room air On 03/05/2025 patient was seen and examined on the medical floor is alert and has he is complaining of right foot pain swelling and erythema otherwise he denies any complaints at this time has no fever or chills no headache or dizziness no chest pain no shortness of breath no cough no nausea or vomiting no abdominal pain no diarrhea and no urinary symptoms. Vascular surgery consultation was initiated for possible foot debridement, infectious disease following patient is maintained on Unasyn and vancomycin. Objective - Vital Signs Vital signs: Vital Signs Temp 98.8 F 03/05/25 00:58 Pulse 76 03/05/25 00:58 Resp 16 03/05/25 00:58 BP 147/76 03/05/25 00:58 Pulse Ox 98 03/05/25 00:58 FiO2 Intake & Output 03/04/25 03/05/25 03/05/25 18:59 06:59 18:59 Intake Total 150 Output Total 1000 1100 Balance -850 -1100 Weight 52.163 kg Intake: Oral 150 Output: Urine 1000 1100 Other: Voiding Method Indwelling Catheter Indwelling Catheter # Bowel Movements 1 - Exam Head normocephalic Neck supple Lungs clear to auscultation bilaterally no wheezing or crackles Heart regular rate and rhythm S1-S2, no rub or gallop Abdomen is soft nontender nondistended positive bowel sounds no he patosplenomegaly Extremities no edema. Right foot erythema noted to 1st and 2nd metatarsal Neuro alert and orientated to 3 - Labs CBC & Chem 7: 03/05/25 06:10 03/05/25 06:10 Labs: Abnormal Lab Results - Last 24 Hours (Table) 03/04/25 03/04/25 03/04/25 Range/Units 11:48 17:10 20:23 WBC (4.50-10.00) 10*3/uL RBC (4.40-5.60) 10*6/uL Hgb (13.0-17.0) g/dL Hct (39.6-50.0) % MPV (9.5-12.2) fL Immature Gran # (0.00-0.04) 10*3/uL Monocytes # (0.20-1.00) 10*3/uL Eosinophils # (0.04-0.35) 10*3/uL POC Glucose (mg/dL) 264 H 285 H 280 H (70-110) mg/dL 03/05/25 03/05/25 Range/Units 06:06 06:10 WBC 11.40 H (4.50-10.00) 10*3/uL RBC 3.16 L (4.40-5.60) 10*6/uL Hgb 9.3 L (13.0-17.0) g/dL Hct 26.8 L (39.6-50.0) % MPV 8.7 L (9.5-12.2) fL Immature Gran # 0.07 H (0.00-0.04) 10*3/uL Monocytes # 1.59 H (0.20-1.00) 10*3/uL Eosinophils # 0.41 H (0.04-0.35) 10*3/uL POC Glucose (mg/dL) 147 H (70-110) mg/dL Microbiology - Last 24 Hours (Table) 03/03/25 19:46 Blood Culture - Preliminary Blood Assessment and Plan Assessment: 1. Right foot cellulitis 2. History of diabetes mellitus 3. History of anemia 4. History of glaucoma DVT prophylaxis Lovenox. GI prophylax Protonix patient started on IV antibiotics Blood culture ordered Infectious disease services consulted Repeat labs ordered
--- NOTE | 2025-03-05 16:40 | P.PCN ---
Description of Procedure: Preop diagnosis infected callus plantar aspect of the right foot marked redness of the second toe measurement is 2 x 2-1/2 cm Postop the same measurement is 3 x 3 x 0.5 cm patient was brought to the operating room right forefoot was prepped and draped in Prestel manner 1% lidocaine for infected with IV sedation patient had a callus on the plantar aspect of the foot elliptical incision was made on the plantar aspect deepened through skin fat subcu tissue there was some drainage and pus noted we took a swab for aerobic anaerobic culture so cutaneous tissue was excised with sharp knife fascia was intact there was no bone or tendon involvement noted. Wound was irrigated gated with hydroperoxide and saline. Plan for control with electrocautery this excessive rope was applied to the wound pressure dressing applied patient tarted the procedure well blood loss was less than 20 cc patient transferred to recovery in satisfactory condition
[2025-03-05 18:00] LABS: Glucose,Whole Blood 112 mg/dL (70-110)
[2025-03-05] MEDS: POTASSIUM CHLORIDE ER 20 MEQ TAB.ER PO STA (18:42)
[2025-03-05] MEDS: VANCOMYCIN TROUGH DUE 1 EACH MISC MISCELLANE ONE (18:44)
[2025-03-05] MEDS: hydrALAZINE HCL 20 MG/ML 1 ML VIAL IVP PRN (19:00)
[2025-03-05 22:13] LABS: Glucose,Whole Blood 293 mg/dL (70-110)
[2025-03-06 00:27] LABS: Glucose,Whole Blood 239 mg/dL (70-110)
[2025-03-06 06:21] LABS: Glucose,Whole Blood 132 mg/dL (70-110)
[2025-03-06] MEDS: ACETAMINOPHEN TAB 325 MG TAB PO PRN (06:50)
[2025-03-06 07:54] LABS: Basophils # (A) 0.08 X 10*3/uL (0.00-0.10); Basophils % (A) 1.1 %; Eosinophils # (A) 0.29 X 10*3/uL (0.04-0.35); Eosinophils % (A) 3.9 %; HCT 27.4 % (39.6-50.0); HGB 9.2 g/dL (13.0-17.0); Immature Grans, Automated 0.90 %; Lymphocytes # (A) 0.67 X 10*3/uL (0.90-5.00); Lymphocytes % (A) 9.0 %; MCH 28.8 pg (27.0-32.0); MCHC 33.6 g/dL (32.0-37.0); MCV 85.6 FL (80.0-97.0); Monocytes # (A) 1.12 X 10*3/uL (0.20-1.00); Monocytes % (A) 15.1 %; NRBC Per 100 WBC 0 X 10*3/uL (0.00-0.01); Neutrophils # (A) 5.18 X 10*3/uL (1.80-7.70); Neutrophils % (A) 70.0 %; Platelet Count 373 X 10*3/uL (140-440); RBC 3.20 X 10*6/uL (4.40-5.60); RDW 12.7 % (11.5-14.5); WBC 7.41 X 10*3/uL (4.50-10.00)
[2025-03-06 08:09] LABS: ALT 14 U/L (10-49); AST 13 U/L (14-35); Albumin 3.1 g/dL (3.8-4.9); Albumin/Globulin Ratio 1.19 Ratio (1.60-3.17); Alkaline Phosphatase 62 U/L (41-126); Anion Gap 11.60 mmol/L (4.00-12.00); BUN/Creat Ratio 10.33 Ratio (12.00-20.00); Blood Urea Nitrogen 9.3 mg/dL (9.0-27.0); Calcium 7.8 mg/dL (8.7-10.3); Carbon Dioxide 21.4 mmol/L (21.6-31.8); Chloride 101 mmol/L (96-109); Globulin 2.6 g/dL (1.6-3.3); Glucose 124 mg/dL (70-110); Potassium 3.4 mmol/L (3.5-5.5); Sodium 134 mmol/L (135-145); Total Protein 5.7 g/dL (6.2-8.2)
[2025-03-06 11:49] LABS: Glucose,Whole Blood 167 mg/dL (70-110)
--- NOTE | 2025-03-06 16:02 | P.PN ---
Progress Note - Text 64-year-old gentleman patient came with infected callus right foot plantar aspect with marked redness of the toes patient had excision of the callus plantar aspect culture is pending patient is an IV antibiotic under care of infectious disease patient is dry and no drainage noted if she has a dressing tomorrow
[2025-03-06 16:42] LABS: Glucose,Whole Blood 91 mg/dL (70-110)
--- NOTE | 2025-03-06 16:58 | P.PN ---
Subjective Progress Note Date: 03/06/25 Principal diagnosis: Reason for follow-up is right diabetic foot infection/abscess Patient is a 64-year-old male with a past medical history significant for type 2 diabetes mellitus anemia, presenting to the concerning for the right foot pain and swelling patient has been diagnosed with a right diabetic foot infection with infected callus.Patient is status post drainage of the abscess right foot and debridement of the infected callus on 03/05/2025 On today's visit that is 03/06/2025,the patient remains to be afebrile, patient is on room air not requiring supplemental oxygen and denies any shortness of breath no chest pain or cough.Patient denies having any nausea or vomiting, no abdominal pain and no diarrhea pain to the right foot is currently controlled. Patient white count 7.41, creatinine 0.9 cultures are currently pending Objective - Vital Signs Vital signs: Vital Signs Temp 99.9 F H 03/06/25 07:43 Pulse 98 03/06/25 07:43 Resp 15 03/06/25 07:43 BP 128/72 03/06/25 07:43 Pulse Ox 98 03/06/25 07:43 FiO2 Intake & Output 03/05/25 03/06/25 03/06/25 18:59 06:59 18:59 Intake Total 150 2160 Output Total 1210 2150 Balance -1060 10 Intake: IV 150 Oral 2160 Output: Urine 1200 2150 Estimated Blood Loss 10 Other: Voiding Method Indwelling Catheter Indwelling Catheter Indwelling Catheter # Bowel Movements 1 - Exam GENERAL DESCRIPTION: Middle-age male lying in bed in no distress RESPIRATORY SYSTEM: Unlabored breathing , decreased breath sounds at bases HEART: S1 S2 regular rate and rhythm , ABDOMEN: Soft , no tenderness EXTREMITIES: Right foot is currently dressed - Labs CBC & Chem 7: 03/06/25 04:31 03/06/25 04:31 Labs: Abnormal Lab Results - Last 24 Hours (Table) 03/05/25 03/05/25 03/05/25 Range/Units 15:31 17:59 22:11 RBC (4.40-5.60) X 10*6/uL Hgb (13.0-17.0) g/dL Hct (39.6-50.0) % MPV (9.5-12.2) FL Immature Gran # (0.00-0.04) X 10*3/uL Lymphocytes # (0.90-5.00) X 10*3/uL Monocytes # (0.20-1.00) X 10*3/uL Sodium (135-145) mmol/L Potassium (3.5-5.5) mmol/L Carbon Dioxide (21.6-31.8) mmol/L BUN/Creatinine Ratio (12.00-20.00) Ratio Glucose (70-110) mg/dL POC Glucose (mg/dL) 113 H 112 H 293 H (70-110) mg/dL Calcium (8.7-10.3) mg/dL AST (14-35) U/L Total Protein (6.2-8.2) g/dL Albumin (3.8-4.9) g/dL Albumin/Globulin Ratio (1.60-3.17) Ratio 03/06/25 03/06/25 03/06/25 Range/Units 00:25 04:31 04:31 RBC 3.20 L (4.40-5.60) X 10*6/uL Hgb 9.2 L (13.0-17.0) g/dL Hct 27.4 L (39.6-50.0) % MPV 8.9 L (9.5-12.2) FL Immature Gran # 0.07 H (0.00-0.04) X 10*3/uL Lymphocytes # 0.67 L (0.90-5.00) X 10*3/uL Monocytes # 1.12 H (0.20-1.00) X 10*3/uL Sodium 134 L (135-145) mmol/L Potassium 3.4 L (3.5-5.5) mmol/L Carbon Dioxide 21.4 L (21.6-31.8) mmol/L BUN/Creatinine Ratio 10.33 L (12.00-20.00) Ratio Glucose 124 H (70-110) mg/dL POC Glucose (mg/dL) 239 H (70-110) mg/dL Calcium 7.8 L (8.7-10.3) mg/dL AST 13 L (14-35) U/L Total Protein 5.7 L (6.2-8.2) g/dL Albumin 3.1 L (3.8-4.9) g/dL Albumin/Globulin Ratio 1.19 L (1.60-3.17) Ratio 03/06/25 03/06/25 Range/Units 06:19 11:47 RBC (4.40-5.60) X 10*6/uL Hgb (13.0-17.0) g/dL Hct (39.6-50.0) % MPV (9.5-12.2) FL Immature Gran # (0.00-0.04) X 10*3/uL Lymphocytes # (0.90-5.00) X 10*3/uL Monocytes # (0.20-1.00) X 10*3/uL Sodium (135-145) mmol/L Potassium (3.5-5.5) mmol/L Carbon Dioxide (21.6-31.8) mmol/L BUN/Creatinine Ratio (12.00-20.00) Ratio Glucose (70-110) mg/dL POC Glucose (mg/dL) 132 H 167 H (70-110) mg/dL Calcium (8.7-10.3) mg/dL AST (14-35) U/L Total Protein (6.2-8.2) g/dL Albumin (3.8-4.9) g/dL Albumin/Globulin Ratio (1.60-3.17) Ratio Microbiology - Last 24 Hours (Table) 03/05/25 16:21 Gram Stain - Preliminary Foot - Right 03/05/25 16:20 Gram Stain - Preliminary Foot - Right 03/03/25 19:46 Blood Culture - Preliminary Blood 03/04/25 13:21 Blood Culture - Preliminary Blood Assessment and Plan (1) Diabetic infection of right foot Current Visit: Yes Status: Acute Code(s): E11.628 - TYPE 2 DIABETES MELLITUS WITH OTHER SKIN COMPLICATIONS; L08.9 - LOCAL INFECTION OF THE SKIN AND SUBCUTANEOUS TISSUE, UNSP SNOMED Code(s): 987942612 (2) Cellulitis of right foot Current Visit: Yes Status: Acute Code(s): L03.115 - CELLULITIS OF RIGHT LOWER LIMB SNOMED Code(s): 85371661227841113 Plan: 1patient presented hospital with right foot pain swelling and redness in this patient who did have a callus on the plantar aspect with evidence of a pustule concerning for infected callus and abscess formation and will need to cover for the polymicrobial vandana SEC to diabetic foot infection 2- vascular surgery has seen the patient and status post debridement of the infected callus and deep culture which are currently pending 3-patient is afebrile cultures currently pending to continue with Unasyn to 3 g every 6 hours and vancomycin pharmacy to dose while waiting for the culture to finalize Dictation was produced using [employer] dictation software. please excuse any grammatical, word or spelling errors. Time with Patient: Less than 30
--- NOTE | 2025-03-06 16:58 | P.PN ---
Subjective Progress Note Date: 03/05/25 Principal diagnosis: Reason for follow-up is right diabetic foot infection/abscess Patient is a 64-year-old male with a past medical history significant for type 2 diabetes mellitus anemia, presenting to the concerning for the right foot pain and swelling patient has been diagnosed with a right diabetic foot infection with infected callus. On today's evaluation that is 03/05/2025,the patient denies any fever or any chills, patient is breathing comfortably on room air, the patient denies chest pain shortness of breath and no significant cough, patient denies abdominal pain, no nausea vomiting or diarrhea. Patient pain to the right foot is currently controlled. Patient white count is 11.40, creatinine 0.82 Objective - Vital Signs Vital signs: Vital Signs Temp 98.8 F 03/05/25 07:00 Pulse 81 03/05/25 07:00 Resp 17 03/05/25 07:00 BP 128/65 03/05/25 07:00 Pulse Ox 99 03/05/25 07:00 FiO2 Intake & Output 03/04/25 03/05/25 03/05/25 18:59 06:59 18:59 Intake Total 150 Output Total 1000 1100 Balance -850 -1100 Weight 52.163 kg Intake: Oral 150 Output: Urine 1000 1100 Other: Voiding Method Indwelling Catheter Indwelling Catheter Indwelling Catheter # Bowel Movements 1 - Exam GENERAL DESCRIPTION: Middle-age male lying in bed in no distress RESPIRATORY SYSTEM: Unlabored breathing , decreased breath sounds at bases HEART: S1 S2 regular rate and rhythm , ABDOMEN: Soft , no tenderness EXTREMITIES: Right foot is currently dressed - Labs CBC & Chem 7: 03/06/25 04:31 03/06/25 04:31 Labs: Abnormal Lab Results - Last 24 Hours (Table) 03/04/25 03/04/25 03/05/25 Range/Units 17:10 20:23 06:06 WBC (4.50-10.00) 10*3/uL RBC (4.40-5.60) 10*6/uL Hgb (13.0-17.0) g/dL Hct (39.6-50.0) % MPV (9.5-12.2) fL Immature Gran # (0.00-0.04) 10*3/uL Monocytes # (0.20-1.00) 10*3/uL Eosinophils # (0.04-0.35) 10*3/uL Potassium (3.5-5.1) mmol/L Glucose (74-99) mg/dL POC Glucose (mg/dL) 285 H 280 H 147 H (70-110) mg/dL Hemoglobin A1c (<=6.0) % Calcium (8.4-10.2) mg/dL AST (17-59) U/L Total Protein (6.3-8.2) g/dL Albumin (3.5-5.0) g/dL 03/05/25 03/05/25 03/05/25 Range/Units 06:10 06:10 06:10 WBC 11.40 H (4.50-10.00) 10*3/uL RBC 3.16 L (4.40-5.60) 10*6/uL Hgb 9.3 L (13.0-17.0) g/dL Hct 26.8 L (39.6-50.0) % MPV 8.7 L (9.5-12.2) fL Immature Gran # 0.07 H (0.00-0.04) 10*3/uL Monocytes # 1.59 H (0.20-1.00) 10*3/uL Eosinophils # 0.41 H (0.04-0.35) 10*3/uL Potassium 3.1 L (3.5-5.1) mmol/L Glucose 133 H (74-99) mg/dL POC Glucose (mg/dL) (70-110) mg/dL Hemoglobin A1c 9.5 H (<=6.0) % Calcium 8.2 L (8.4-10.2) mg/dL AST 16 L (17-59) U/L Total Protein 5.9 L (6.3-8.2) g/dL Albumin 3.1 L (3.5-5.0) g/dL 03/05/25 Range/Units 11:30 WBC (4.50-10.00) 10*3/uL RBC (4.40-5.60) 10*6/uL Hgb (13.0-17.0) g/dL Hct (39.6-50.0) % MPV (9.5-12.2) fL Immature Gran # (0.00-0.04) 10*3/uL Monocytes # (0.20-1.00) 10*3/uL Eosinophils # (0.04-0.35) 10*3/uL Potassium (3.5-5.1) mmol/L Glucose (74-99) mg/dL POC Glucose (mg/dL) 111 H (70-110) mg/dL Hemoglobin A1c (<=6.0) % Calcium (8.4-10.2) mg/dL AST (17-59) U/L Total Protein (6.3-8.2) g/dL Albumin (3.5-5.0) g/dL Microbiology - Last 24 Hours (Table) 03/03/25 19:46 Blood Culture - Preliminary Blood Assessment and Plan (1) Diabetic infection of right foot Current Visit: Yes Status: Acute Code(s): E11.628 - TYPE 2 DIABETES MELLITUS WITH OTHER SKIN COMPLICATIONS; L08.9 - LOCAL INFECTION OF THE SKIN AND [place] BCUTANEOUS TISSUE, UNSP SNOMED Code(s): 481806510 (2) Cellulitis of right foot Current Visit: Yes Status: Acute Code(s): L03.115 - CELLULITIS OF RIGHT LOWER LIMB SNOMED Code(s): 58241500158826251 Plan: 1patient presented hospital with right foot pain swelling and redness in this patient who did have a callus on the plantar aspect with evidence of a pustule concerning for infected callus and abscess formation and will need to cover for the polymicrobial vandana SEC to diabetic foot infection 2- vascular surgery has seen the patient and planning for debridement of the infected callus and deep culture 3-patient will be treated with Unasyn to 3 g every 6 hours and vancomycin pharmacy to dose while waiting for the culture to finalize Dictation was produced using [employer] dictation software. please excuse any gra mmatical, word or spelling errors. Time with Patient: Less than 30
[2025-03-06] MEDS ORDERED: Potassium Replacement Protocol 1 EACH MISC MISCELLANE PRN (17:30)
--- NOTE | 2025-03-06 17:40 | P.PN ---
Subjective Progress Note Date: 03/06/25 Shaw Bain is a 64-year-old male patient who presented with concerns of right foot cellulitis. Patient reports he has had issues with a callus before but it had completely healed in about a week ago started to come back and he noticed redness and pain over the past few days. Patient denies fever. Patient does have a past medical history of diabetes mellitus. Patient denies any recent injury. Additional medical history includes anemia and glaucoma. Foot x-ray completed in ER showing no acute osseous abnormality of the right foot. Upon exam patient noted to have significant redness to right foot and metatarsal area. At this time patient will be started on IV antibiotics Vanco and Unasyn. Blood culture ordered. Infectious disease services consulted. Patient denies chest pain or shortness of breath. Patient denies nausea vomiting or diarrhea. Patient denies any urinary burning or frequency. Lab work completed showing white blood cell 12.39, hemoglobin 10.8, sodium 134, creatinine 0.90, bun 19. Vital signs temp 98.0, heart rate 85, respiratory rate 18, blood pressure 128/70 with pulse ox 99% on room air On 03/05/2025 patient was seen and examined on the medical floor is alert and has he is complaining of right foot pain swelling and erythema otherwise he denies any complaints at this time has no fever or chills no headache or dizziness no chest pain no shortness of breath no cough no nausea or vomiting no abdominal pain no diarrhea and no urinary symptoms. Vascular surgery consultation was initiated for possible foot debridement, infectious disease following patient is maintained on Unasyn and vancomycin. On 03/06/2025 patient was seen and examined on the medical floor he is alert and oriented x 3 in no apparent distress he is complaining of right foot pain otherwise he denies any complaints there is no fever or chills no headache or dizziness no chest pain no shortness of breath no cough no nausea or vomiting no abdominal pain no diarrhea no urinary symptoms Objective - Vital Signs Vital signs: Vital Signs Temp 99.1 F 03/06/25 16:52 Pulse 78 03/06/25 13:59 Resp 16 03/06/25 13:59 BP 129/70 03/06/25 13:59 Pulse Ox 100 03/06/25 13:59 FiO2 Intake & Output 03/05/25 03/06/25 03/06/25 18:59 06:59 18:59 Intake Total 150 2160 Output Total 1210 2150 Balance -1060 10 Intake: IV 150 Oral 2160 Output: Urine 1200 2150 Estimated Blood Loss 10 Other: Voiding Method Indwelling Catheter Indwelling Catheter Indwelling Catheter # Bowel Movements 1 - Exam Head normocephalic Neck supple Lungs clear to auscultation bilaterally no wheezing or crackles Heart regular rate and rhythm S1-S2, no rub or gallop Abdomen is soft nontender nondistended positive bowel sounds no hepatosplenomegaly Extremities no edema. Right foot erythema noted to 1st and 2nd metatarsal Neuro alert and orientated to 3 - Labs CBC & Chem 7: 03/06/25 04:31 03/06/25 04:31 Labs: Abnormal Lab Results - Last 24 Hours (Table) 03/05/25 03/05/25 03/06/25 Range/Units 17:59 22:11 00:25 RBC (4.40-5.60) X 10*6/uL Hgb (13.0-17.0) g/dL Hct (39.6-50.0) % MPV (9.5-12.2) FL Immature Gran # (0.00-0.04) X 10*3/uL Lymphocytes # (0.90-5.00) X 10*3/uL Monocytes # (0.20-1.00) X 10*3/uL Sodium (135-145) mmol/L Potassium (3.5-5.5) mmol/L Carbon Dioxide (21.6-31.8) mmol/L BUN/Creatinine Ratio (12.00-20.00) Ratio Glucose (70-110) mg/dL POC Glucose (mg/dL) 112 H 293 H 239 H (70-110) mg/dL Calcium (8.7-10.3) mg/dL AST (14-35) U/L Total Protein (6.2-8.2) g/dL Albumin (3.8-4.9) g/dL Albumin/Globulin Ratio (1.60-3.17) Ratio 03/06/25 03/06/25 03/06/25 Range/Units 04:31 04:31 06:19 RBC 3.20 L (4.40-5.60) X 10*6/uL Hgb 9.2 L (13.0-17.0) g/dL Hct 27.4 L (39.6-50.0) % MPV 8.9 L (9.5-12.2) FL Immature Gran # 0.07 H (0.00-0.04) X 10*3/uL Lymphocytes # 0.67 L (0.90-5.00) X 10*3/uL Monocytes # 1.12 H (0.20-1.00) X 10*3/uL Sodium 134 L (135-145) mmol/L Potassium 3.4 L (3.5-5.5) mmol/L Carbon Dioxide 21.4 L (21.6-31.8) mmol/L BUN/Creatinine Ratio 10.33 L (12.00-20.00) Ratio Glucose 124 H (70-110) mg/dL POC Glucose (mg/dL) 132 H (70-110) mg/dL Calcium 7.8 L (8.7-10.3) mg/dL AST 13 L (14-35) U/L Total Protein 5.7 L (6.2-8.2) g/dL Albumin 3.1 L (3.8-4.9) g/dL Albumin/Globulin Ratio 1.19 L (1.60-3.17) Ratio //25 Range/Units 11:47 RBC (4.40-5.60) X 10*6/uL Hgb (13.0-17.0) g/dL Hct (39.6-50.0) % MPV (9.5-12.2) FL Immature Gran # (0.00-0.04) X 10*3/uL Lymphocytes # (0.90-5.00) X 10*3/uL Monocytes # (0.20-1.00) X 10*3/uL Sodium (135-145) mmol/L Potassium (3.5-5.5) mmol/L Carbon Dioxide (21.6-31.8) mmol/L BUN/Creatinine Ratio (12.00-20.00) Ratio Glucose (70-110) mg/dL POC Glucose (mg/dL) 167 H (70-110) mg/dL Calcium (8.7-10.3) mg/dL AST (14-35) U/L Total Protein (6.2-8.2) g/dL Albumin (3.8-4.9) g/dL Albumin/Globulin Ratio (1.60-3.17) Ratio Microbiology - Last 24 Hours (Table) 03/05/25 16:21 Gram Stain - Preliminary Foot - Right 03/05/25 16:20 Gram Stain - Preliminary Foot - Right 03/03/25 19:46 Blood Culture - Preliminary Blood 03/04/25 13:21 Blood Culture - Preliminary Blood Assessment and Plan Assessment: 1. Right foot cellulitis 2. History of diabetes mellitus 3. History of anemia 4. History of glaucoma DVT prophylaxis Lovenox. GI prophylax Protonix patient started on IV antibiotics Blood culture ordered Infectious disease services consulted Repeat labs ordered
[2025-03-06] MEDS: POTASSIUM CHLORIDE ER 20 MEQ TAB.ER PO SCH (18:06)
[2025-03-06 20:35] LABS: Glucose,Whole Blood 164 mg/dL (70-110)
[2025-03-07 06:24] LABS: Glucose,Whole Blood 91 mg/dL (70-110)
[2025-03-07 08:22] LABS: HCT 27.5 % (39.6-50.0); HGB 9.3 g/dL (13.0-17.0); MCH 28.5 pg (27.0-32.0); MCHC 33.8 g/dL (32.0-37.0); MCV 84.4 FL (80.0-97.0); NRBC Per 100 WBC 0 X 10*3/uL (0.00-0.01); Platelet Count 378 X 10*3/uL (140-440); RBC 3.26 X 10*6/uL (4.40-5.60); RDW 12.6 % (11.5-14.5); WBC 6.37 X 10*3/uL (4.50-10.00)
[2025-03-07 08:35] LABS: ALT 14 U/L (10-49); AST 14 U/L (14-35); Albumin 3.2 g/dL (3.8-4.9); Albumin/Globulin Ratio 1.14 Ratio (1.60-3.17); Alkaline Phosphatase 57 U/L (41-126); Anion Gap 9.60 mmol/L (4.00-12.00); BUN/Creat Ratio 8.90 Ratio (12.00-20.00); Blood Urea Nitrogen 8.9 mg/dL (9.0-27.0); Calcium 8.0 mg/dL (8.7-10.3); Carbon Dioxide 25.4 mmol/L (21.6-31.8); Chloride 98 mmol/L (96-109); Globulin 2.8 g/dL (1.6-3.3); Glucose 98 mg/dL (70-110); Potassium 4.2 mmol/L (3.5-5.5); Sodium 133 mmol/L (135-145); Total Protein 6.0 g/dL (6.2-8.2)
[2025-03-07 10:08] LABS: Basophils # (M) 0.13 X 10*3/uL (0.00-0.10); Eosinophils # (M) 0.13 X 10*3/uL (0.04-0.35); Lymphocytes # (M) 0.89 X 10*3/uL (0.90-5.00); Monocytes # (M) 0.64 X 10*3/uL (0.20-1.00); Neutrophils # (M) 4.40 X 10*3/uL (1.80-7.70); Neutrophils % (M) 69 %
[2025-03-07 11:46] LABS: Glucose,Whole Blood 112 mg/dL (70-110)
--- NOTE | 2025-03-07 12:36 | P.PN ---
Subjective Progress Note Date: 03/07/25 Shaw Bain is a 64-year-old male patient who presented with concerns of right foot cellulitis. Patient reports he has had issues with a callus before but it had completely healed in about a week ago started to come back and he noticed redness and pain over the past few days. Patient denies fever. Patient does have a past medical history of diabetes mellitus. Patient denies any recent injury. Additional medical history includes anemia and glaucoma. Foot x-ray completed in ER showing no acute osseous abnormality of the right foot. Upon exam patient noted to have significant redness to right foot and metatarsal area. At this time patient will be started on IV antibiotics Vanco and Unasyn. Blood culture ordered. Infectious disease services consulted. Patient denies chest pain or shortness of breath. Patient denies nausea vomiting or diarrhea. Patient denies any urinary burning or frequency. Lab work completed showing white blood cell 12.39, hemoglobin 10.8, sodium 134, creatinine 0.90, bun 19. Vital signs temp 98.0, heart rate 85, respiratory rate 18, blood pressure 128/70 with pulse ox 99% on room air On 03/05/2025 patient was seen and examined on the medical floor is alert and has he is complaining of right foot pain swelling and erythema otherwise he denies any complaints at this time has no fever or chills no headache or dizziness no chest pain no shortness of breath no cough no nausea or vomiting no abdominal pain no diarrhea and no urinary symptoms. Vascular surgery consultation was initiated for possible foot debridement, infectious disease following patient is maintained on Unasyn and vancomycin. On 03/06/2025 patient was seen and examined on the medical floor he is alert and oriented x 3 in no apparent distress he is complaining of right foot pain otherwise he denies any complaints there is no fever or chills no headache or dizziness no chest pain no shortness of breath no cough no nausea or vomiting no abdominal pain no diarrhea no urinary symptoms On 03/07/2025 patient was seen and examined on the medical floor he is alert and oriented x 3 in no apparent distress he is complaining of right foot pain, he is also complaining of nausea, otherwise he denies any complaints there is no fever or chills no headache or dizziness no chest pain no shortness of breath no cough no vomiting no abdominal pain no diarrhea no urinary symptoms Objective - Vital Signs Vital signs: Vital Signs Temp 101.2 F H 03/07/25 07:54 Pulse 97 03/07/25 07:54 Resp 20 03/07/25 07:54 BP 141/79 03/07/25 07:54 Pulse Ox 97 03/07/25 07:54 FiO2 Intake & Output 03/06/25 03/07/25 03/07/25 18:59 06:59 18:59 Intake Total 2179 Output Total 500 1875 Balance -500 304 Intake: Oral 2179 Output: Urine 500 1875 Other: Voiding Method Indwelling Catheter Indwelling Catheter Indwelling Catheter - Exam Head normocephalic Neck supple Lungs clear to auscultation bilaterally no wheezing or crackles Heart regular rate and rhythm S1-S2, no rub or gallop Abdomen is soft nontender nondistended positive bowel sounds no hepatosplenomegaly Extremities no edema. Right foot erythema noted to 1st and 2nd metatarsal Neuro alert and orientated to 3 - Labs CBC & Chem 7: 03/07/25 05:29 03/07/25 05:29 Labs: Abnormal Lab Results - Last 24 Hours (Table) 03/06/25 03/07/25 03/07/25 Range/Units 20:34 05:29 05:29 RBC 3.26 L (4.40-5.60) X 10*6/uL Hgb 9.3 L (13.0-17.0) g/dL Hct 27.5 L (39.6-50.0) % MPV 8.9 L (9.5-12.2) FL Lymphocytes # (Manual) 0.89 L (0.90-5.00) X 10*3/uL Basophils # (Manual) 0.13 H (0.00-0.10) X 10*3/uL Sodium 133 L (135-145) mmol/L BUN 8.9 L (9.0-27.0) mg/dL BUN/Creatinine Ratio 8.90 L (12.00-20.00) Ratio POC Glucose (mg/dL) 164 H (70-110) mg/dL Calcium 8.0 L (8.7-10.3) mg/dL Total Protein 6.0 L (6.2-8.2) g/dL Albumin 3.2 L (3.8-4.9) g/dL Albumin/Globulin Ratio 1.14 L (1.60-3.17) Ratio 03/07/25 Range/Units 11:40 RBC (4.40-5.60) X 10*6/uL Hgb (13.0-17.0) g/dL Hct (39.6-50.0) % MPV (9.5-12.2) FL Lymphocytes # (Manual) (0.90-5.00) X 10*3/uL Basophils # (Manual) (0.00-0.10) X 10*3/uL Sodium (135-145) mmol/L BUN (9.0-27.0) mg/dL BUN/Creatinine Ratio (12.00-20.00) Ratio POC Glucose (mg/dL) 112 H (70-110) mg/dL Calcium (8.7-10.3) mg/dL Total Protein (6.2-8.2) g/dL Albumin (3.8-4.9) g/dL Albumin/Globulin Ratio (1.60-3.17) Ratio Microbiology - Last 24 Hours (Table) 03/05/25 16:20 Gram Stain - Preliminary Foot - Right Tissue Culture - Preliminary Presumptive MRSA 03/05/25 16:21 Gram Stain - Preliminary Foot - Right Wound Culture - Preliminary Presumptive MRSA 03/03/25 19:46 Blood Culture - Preliminary Blood 03/04/25 13:21 Blood Culture - Preliminary Blood Assessment and Plan Assessment: 1. Right foot cellulitis 2. History of diabetes mellitus 3. History of anemia 4. History of glaucoma DVT prophylaxis Lovenox. GI prophylax Protonix patient started on IV antibiotics Blood culture ordered Infectious disease services consulted Repeat labs ordered
--- NOTE | 2025-03-07 15:32 | P.PN ---
Progress Note - Text 64-year-old gentleman patient With infected callus plantar surface Foot we excised the callus we will treating with local wound care and IV antibiotic under care of infectious disease we have changed to Santyl cream should be changed on daily basis patient will be having offloading shoe nonweightbearing
[2025-03-07] MEDS: COLLAGENASE 250 UNIT/GM OINTMENT 30 GM TUBE TOPICAL SCH (15:46)
[2025-03-07 16:31] LABS: Glucose,Whole Blood 99 mg/dL (70-110)
[2025-03-07 20:17] LABS: Glucose,Whole Blood 105 mg/dL (70-110)
[2025-03-07] MEDS: ONDANSETRON 4 MG/2 ML VIAL IVP PRN (20:29)
[2025-03-08 02:05] LABS: Glucose,Whole Blood 123 mg/dL (70-110)
[2025-03-08 05:31] LABS: ALT 13 U/L (4-49); AST 19 U/L (17-59); African American GFR (CKD) >90 (>60 ml/min/1.73 sqM); Albumin 3.0 g/dL (3.5-5.0); Albumin/Globulin Ratio 1.0; Alkaline Phosphatase 56 U/L (38-126); Anion Gap 7 mmol/L; Blood Urea Nitrogen 16 mg/dL (9-20); Calcium 8.7 mg/dL (8.4-10.2); Carbon Dioxide 28 mmol/L (22-30); Chloride 101 mmol/L (98-107); Globulin 3.0 g/dL; Glucose 78 mg/dL (74-99); Non-African American GFR(CKD) 82 (>60 ml/min/1.73 sqM); Potassium 3.6 mmol/L (3.5-5.1); Sodium 136 mmol/L (137-145); Total Protein 6.0 g/dL (6.3-8.2)
[2025-03-08 06:05] LABS: Glucose,Whole Blood 71 mg/dL (70-110)
[2025-03-08 09:30] LABS: Basophils # (A) 0.09 X 10*3/uL (0.00-0.10); Basophils % (A) 1.7 %; Eosinophils # (A) 0.08 X 10*3/uL (0.04-0.35); Eosinophils % (A) 1.5 %; HCT 30.3 % (39.6-50.0); HGB 10.0 g/dL (13.0-17.0); Immature Grans, Automated 1.70 %; Lymphocytes # (A) 1.05 X 10*3/uL (0.90-5.00); Lymphocytes % (A) 19.9 %; MCH 28.7 pg (27.0-32.0); MCHC 33.0 g/dL (32.0-37.0); MCV 87.1 FL (80.0-97.0); Monocytes # (A) 0.51 X 10*3/uL (0.20-1.00); Monocytes % (A) 9.7 %; NRBC Per 100 WBC 0 X 10*3/uL (0.00-0.01); Neutrophils # (A) 3.45 X 10*3/uL (1.80-7.70); Neutrophils % (A) 65.5 %; Platelet Count 366 X 10*3/uL (140-440); RBC 3.48 X 10*6/uL (4.40-5.60); RDW 12.6 % (11.5-14.5); WBC 5.27 X 10*3/uL (4.50-10.00)
--- NOTE | 2025-03-08 09:36 | P.PN ---
Subjective Progress Note Date: 03/07/25 Principal diagnosis: Reason for follow-up is right diabetic foot infection/abscess Patient is a 64-year-old male with a past medical history significant for type 2 diabetes mellitus anemia, presenting to the concerning for the right foot pain and swelling patient has been diagnosed with a right diabetic foot infection with infected callus.Patient is status post drainage of the abscess right foot and debridement of the infected callus on 03/05/2025 On today's visit that is 03/07/2025, the patient continues to be afebrile, the patient is on room air and breathing comfortably, the Pt denies having any chest pain or cough, the patient denies having any abdominal pain no vomiting or any diarrhea has been reported by the nursing staff pain to the right foot is curre ntly controlled. Patient white count is 5.27, creatinine 0.98 local culture with presumptive MRSA Objective - Vital Signs Vital signs: Vital Signs Temp 99.2 F 03/07/25 12:31 Pulse 89 03/07/25 12:31 Resp 18 03/07/25 12:31 BP 159/80 03/07/25 12:31 Pulse Ox 99 03/07/25 12:31 FiO2 Intake & Output 03/06/25 03/07/25 03/07/25 18:59 06:59 18:59 Intake Total 2179 1530 Output Total 500 1875 2100 Balance -500 304 -570 Intake: Intake, IV Titration 1050 Amount Ampicillin-Sulbactam 3 gm 200 In Sodium Chloride 0.9% 100 ml @ 200 mls/hr IVPB Q6HR [facility] Rx#:[id number] Sodium Chloride 0.9% 1, 600 000 ml @ 75 mls/hr IV . [id number] [facility] Rx#:[id number] Vancomycin 1,000 mg In 250 Sodium Chloride 0.9% 250 ml @ 125 mls/hr IVPB Q12H [facility] Rx#:[id number] Oral 2179 480 Output: Urine 500 1875 900 Stool 1200 Other: Voiding Method Indwelling Catheter Indwelling Catheter Indwelling Catheter # Bowel Movements 3 - Exam GENERAL DESCRIPTION: Middle-age male lying in bed in no distress RESPIRATORY SYSTEM: Unlabored breathing , decreased breath sounds at bases HEART: S1 S2 regular rate and rhythm , ABDOMEN: Soft , no tenderness EXTREMITIES: Right foot is currently dressed - Labs CBC & Chem 7: 03/08/25 04:34 03/08/25 04:34 Labs: Abnormal Lab Results - Last 24 Hours (Table) 03/06/25 03/07/25 03/07/25 Range/Units 20:34 05:29 05:29 RBC 3.26 L (4.40-5.60) X 10*6/uL Hgb 9.3 L (13.0-17.0) g/dL Hct 27.5 L (39.6-50.0) % MPV 8.9 L (9.5-12.2) FL Lymphocytes # (Manual) 0.89 L (0.90-5.00) X 10*3/uL Basophils # (Manual) 0.13 H (0.00-0.10) X 10*3/uL Sodium 133 L (135-145) mmol/L BUN 8.9 L (9.0-27.0) mg/dL BUN/Creatinine Ratio 8.90 L (12.00-20.00) Ratio POC Glucose (mg/dL) 164 H (70-110) mg/dL Calcium 8.0 L (8.7-10.3) mg/dL Total Protein 6.0 L (6.2-8.2) g/dL Albumin 3.2 L (3.8-4.9) g/dL Albumin/Globulin Ratio 1.14 L (1.60-3.17) Ratio 03/07/25 Range/Units 11:40 RBC (4.40-5.60) X 10*6/uL Hgb (13.0-17.0) g/dL Hct (39.6-50.0) % MPV (9.5-12.2) FL Lymphocytes # (Manual) (0.90-5.00) X 10*3/uL Basophils # (Manual) (0.00-0.10) X 10*3/uL Sodium (135-145) mmol/L BUN (9.0-27.0) mg/dL BUN/Creatinine Ratio (12.00-20.00) Ratio POC Glucose (mg/dL) 112 H (70-110) mg/dL Calcium (8.7-10.3) mg/dL Total Protein (6.2-8.2) g/dL Albumin (3.8-4.9) g/dL Albumin/Globulin Ratio (1.60-3.17) Ratio Microbiology - Last 24 Hours (Table) 03/05/25 16:20 Gram Stain - Preliminary Foot - Right Tissue Culture - Preliminary Presumptive MRSA 03/05/25 16:21 Gram Stain - Preliminary Foot - Right Wound Culture - Preliminary Presumptive MRSA 03/03/25 19:46 Blood Culture - Preliminary Blood 03/04/25 13:21 Blood Culture - Preliminary Blood Assessment and Plan (1) Diabetic infection of right foot Current Visit: Yes Status: Acute Code(s): E11.628 - TYPE 2 DIABETES MELLITUS WITH OTHER SKIN COMPLICATIONS; L08.9 - LOCAL INFECTION OF THE SKIN AND SUBCUTANEOUS TISSUE, UNSP SNOMED Code(s): 925206278 (2) Cellulitis of right foot Current Visit: Yes Status: Acute Code(s): L03.115 - CELLULITIS OF RIGHT LOWER LIMB SNOMED Code(s): 79860949646667426 Plan: 1patient presented hospital with right foot pain swelling and redness in this patient who did have a callus on the plantar aspect with evidence of a pustule concerning for infected callus and abscess formation and will need to cover for the polymicrobial vandana SEC to diabetic foot infection 2- vascular surgery has seen the patient and status post debridement of the infected callus and deep culture which are currently pending 3-patient is afebrile cultures currently presumptive MRSA 4-patient is covered with vancomycin if no gram-negative or anaerobes to discontinue Unasyn Dictation was produced using [employer] dictation software. please excuse any grammatical, word or spelling errors. Time with Patient: Less than 30
[2025-03-08 11:30] LABS: Glucose,Whole Blood 209 mg/dL (70-110)
--- NOTE | 2025-03-08 12:45 | P.PN ---
Subjective Progress Note Date: 03/08/25 Shaw Bain is a 64-year-old male patient who presented with concerns of right foot cellulitis. Patient reports he has had issues with a callus before but it had completely healed in about a week ago started to come back and he noticed redness and pain over the past few days. Patient denies fever. Patient does have a past medical history of diabetes mellitus. Patient denies any recent injury. Additional medical history includes anemia and glaucoma. Foot x-ray completed in ER showing no acute osseous abnormality of the right foot. Upon exam patient noted to have significant redness to right foot and metatarsal area. At this time patient will be started on IV antibiotics Vanco and Unasyn. Blood culture ordered. Infectious disease services consulted. Patient denies chest pain or shortness of breath. Patient denies nausea vomiting or diarrhea. Patient denies any urinary burning or frequency. Lab work completed showing white blood cell 12.39, hemoglobin 10.8, sodium 134, creatinine 0.90, bun 19. Vital signs temp 98.0, heart rate 85, respiratory rate 18, blood pressure 128/70 with pulse ox 99% on room air On 03/05/2025 patient was seen and examined on the medical floor is alert and has he is complaining of right foot pain swelling and erythema otherwise he denies any complaints at this time has no fever or chills no headache or dizziness no chest pain no shortness of breath no cough no nausea or vomiting no abdominal pain no diarrhea and no urinary symptoms. Vascular surgery consultation was initiated for possible foot debridement, infectious disease following patient is maintained on Unasyn and vancomycin. On 03/06/2025 patient was seen and examined on the medical floor he is alert and oriented x 3 in no apparent distress he is complaining of right foot pain otherwise he denies any complaints there is no fever or chills no headache or dizziness no chest pain no shortness of breath no cough no nausea or vomiting no abdominal pain no diarrhea no urinary symptoms On 03/07/2025 patient was seen and examined on the medical floor he is alert and oriented x 3 in no apparent distress he is complaining of right foot pain, he is also complaining of nausea, otherwise he denies any complaints there is no fever or chills no headache or dizziness no chest pain no shortness of breath no cough no vomiting no abdominal pain no diarrhea no urinary symptoms. On 03/08/2025 patient was seen and examined on the medical floor he is alert and oriented x 3 in no apparent distress, he is complaining of diarrhea otherwise he denies any complaint, pain in the foot is well-controlled no fever or chills no headache or dizziness no chest pain no shortness of breath no cough no nausea or vomiting no abdominal pain no diarrhea no urinary symptoms Objective - Vital Signs Vital signs: Vital Signs Temp 98.3 F 03/08/25 07:49 Pulse 78 03/08/25 07:49 Resp 20 03/08/25 07:49 BP 148/71 03/08/25 07:49 Pulse Ox 98 03/08/25 07:49 FiO2 Intake & Output 03/07/25 03/08/25 03/08/25 18:59 06:59 18:59 Intake Total 1730 Output Total 2850 750 1600 Balance -1120 -750 -1600 Intake: Intake, IV Titration 1050 Amount Ampicillin-Sulbactam 3 gm 200 In Sodium Chloride 0.9% 100 ml @ 200 mls/hr IVPB Q6HR [facility] Rx#:[id number] Sodium Chloride 0.9% 1, 600 000 ml @ 75 mls/hr IV . [id number] [facility] Rx#:[id number] Vancomycin 1,000 mg In 250 Sodium Chloride 0.9% 250 ml @ 125 mls/hr IVPB Q12H [facility] Rx#:[id number] Oral 680 Output: Urine 8334 212 7296 Uretheral (Daly) 1600 Stool 1200 Other: Voiding Method Indwelling Catheter Indwelling Catheter Indwelling Catheter # Bowel Movements 2 5 - Exam Head normocephalic Neck supple Lungs clear to auscultation bilaterally no wheezing or crackles Heart regular rate and rhythm S1-S2, no rub or gallop Abdomen is soft nontender nondistended positive bowel sounds no hepa tosplenomegaly Extremities no edema. Right foot erythema noted to 1st and 2nd metatarsal Neuro alert and orientated to 3 - Labs CBC & Chem 7: 03/08/25 04:34 03/08/25 04:34 Labs: Abnormal Lab Results - Last 24 Hours (Table) 03/08/25 03/08/25 03/08/25 Range/Units 02:04 04:34 04:34 RBC 3.48 L (4.40-5.60) X 10*6/uL Hgb 10.0 L (13.0-17.0) g/dL Hct 30.3 L (39.6-50.0) % MPV 8.7 L (9.5-12.2) FL Immature Gran # 0.09 H (0.00-0.04) X 10*3/uL Sodium 136 L (137-145) mmol/L POC Glucose (mg/dL) 123 H (70-110) mg/dL Total Protein 6.0 L (6.3-8.2) g/dL Albumin 3.0 L (3.5-5.0) g/dL 03/08/25 Range/Units 11:27 RBC (4.40-5.60) X 10*6/uL Hgb (13.0-17.0) g/dL Hct (39.6-50.0) % MPV (9.5-12.2) FL Immature Gran # (0.00-0.04) X 10*3/uL Sodium (137-145) mmol/L POC Glucose (mg/dL) 209 H (70-110) mg/dL Total Protein (6.3-8.2) g/dL Albumin (3.5-5.0) g/dL Microbiology - Last 24 Hours (Table) 03/04/25 13:21 Blood Culture - Preliminary Blood 03/05/25 16:20 Gram Stain - Preliminary Foot - Right Tissue Culture - Preliminary Presumptive MRSA 03/05/25 16:21 Gram Stain - Preliminary Foot - Right Wound Culture - Preliminary Presumptive MRSA Assessment and Plan Assessment: 1. Right foot cellulitis 2. History of diabetes mellitus 3. History of anemia 4. History of glaucoma DVT prophylaxis Lovenox. GI prophylax Protonix patient started on IV antibiotics Blood culture ordered Infectious disease services consulted Repeat labs ordered
--- NOTE | 2025-03-08 15:18 | P.PN ---
Subjective Progress Note Date: 03/08/25 Principal diagnosis: Reason for follow-up is right diabetic foot infection/abscess Patient is a 64-year-old male with a past medical history significant for type 2 diabetes mellitus anemia, presenting to the concerning for the right foot pain and swelling patient has been diagnosed with a right diabetic foot infection with infected callus.Patient is status post drainage of the abscess right foot and debridement of the infected callus on 03/05/2025 On today's visit that is 03/08/2024, patient did have a temperature of 98.3 F this morning and denies having any chills, patient is on room air and breathing comfortably no chest pain or cough, the patient did not have any nausea vomiting abdominal pain or any diarrhea and denies pain to the right foot wound area. Patient white count is 5.27, creatinine 0.98 Objective - Vital Signs Vital signs: Vital Signs Temp 99.2 F 03/08/25 14:00 Pulse 81 03/08/25 14:00 Resp 18 03/08/25 14:00 BP 146/71 03/08/25 14:00 Pulse Ox 98 03/08/25 14:00 FiO2 Intake & Output 03/07/25 03/08/25 03/08/25 18:59 06:59 18:59 Intake Total 1730 Output Total 2850 750 1600 Balance -1120 -750 -1600 Intake: Intake, IV Titration 1050 Amount Ampicillin-Sulbactam 3 gm 200 In Sodium Chloride 0.9% 100 ml @ 200 mls/hr IVPB Q6HR TONY Rx#:[id number] Sodium Chloride 0.9% 1, 600 000 ml @ 75 mls/hr IV . [id number] TONY Rx#:[id number] Vancomycin 1,000 mg In 250 Sodium Chloride 0.9% 250 ml @ 125 mls/hr IVPB Q12H TONY Rx#:[id number] Oral 680 Output: Urine 3362 297 3470 Uretheral (Daly) 1600 Stool 1200 Other: Voiding Method Indwelling Catheter Indwelling Catheter Indwelling Catheter # Bowel Movements 2 5 - Exam GENERAL DESCRIPTION: Middle-age male lying in bed in no distress RESPIRATORY SYSTEM: Unlabored breathing , decreased breath sounds at bases HEART: S1 S2 regular rate and rhythm , ABDOMEN: Soft , no tenderness EXTREMITIES: Right foot wound base with some necrotic tissue but bone is not palpable - Labs CBC & Chem 7: 03/08/25 04:34 03/08/25 04:34 Labs: Abnormal Lab Results - Last 24 Hours (Table) 03/08/25 03/08/25 03/08/25 Range/Units 02:04 04:34 04:34 RBC 3.48 L (4.40-5.60) X 10*6/uL Hgb 10.0 L (13.0-17.0) g/dL Hct 30.3 L (39.6-50.0) % MPV 8.7 L (9.5-12.2) FL Immature Gran # 0.09 H (0.00-0.04) X 10*3/uL Sodium 136 L (137-145) mmol/L POC Glucose (mg/dL) 123 H (70-110) mg/dL Total Protein 6.0 L (6.3-8.2) g/dL Albumin 3.0 L (3.5-5.0) g/dL 03/08/25 Range/Units 11:27 RBC (4.40-5.60) X 10*6/uL Hgb (13.0-17.0) g/dL Hct (39.6-50.0) % MPV (9.5-12.2) FL Immature Gran # (0.00-0.04) X 10*3/uL Sodium (137-145) mmol/L POC Glucose (mg/dL) 209 H (70-110) mg/dL Total Protein (6.3-8.2) g/dL Albumin (3.5-5.0) g/dL Microbiology - Last 24 Hours (Table) 03/05/25 16:21 Anaerobic Culture - Preliminary Foot - Right 03/05/25 16:20 Anaerobic Culture - Preliminary Foot - Right 03/05/25 16:20 Gram Stain - Final Foot - Right Tissue Culture - Final Methicillin resist S. aureus 03/05/25 16:21 Gram Stain - Final Foot - Right Wound Culture - Final Methicillin resist S. aureus 03/04/25 13:21 Blood Culture - Preliminary Blood Assessment and Plan (1) Diabetic infection of right foot Current Visit: Yes Status: Acute Code(s): E11.628 - TYPE 2 DIABETES MELLITUS WITH OTHER SKIN COMPLICATIONS; L08.9 - LOCAL INFECTION OF THE SKIN AND SUBCUTANEOUS TISSUE, UNSP SNOMED Code(s): 907210369 (2) Cellulitis of right foot Current Visit: Yes Status: Acute Code(s): L03.115 - CELLULITIS OF RIGHT LOWER LIMB SNOMED Code(s): 04255849769445043 Plan: 1patient presented hospital with right foot pain swelling and redness in this patient who did have a callus on the plantar aspect with evidence of a pustule concerning for infected callus and abscess formation and will need to cover for the polymicrobial vandana SEC to diabetic foot infection 2- vascular surgery has seen the patient and status post debridement of the infected callus and deep culture which are currently pending 3-patient is afebrile cultures currently presumptive MRSA 4-patient will be treated with IV vancomycin while inpatient will discuss with [facility] caser if the patient is getting go to rehab may benefit from a course of IV otherwise we will try oral Zyvox on discharge Dictation was produced using [employer] dictation software. please excuse any grammatical, word or spelling errors. Time with Patient: Less than 30
[2025-03-08 17:34] LABS: Glucose,Whole Blood 129 mg/dL (70-110)
[2025-03-08 21:56] LABS: Glucose,Whole Blood 98 mg/dL (70-110)
[2025-03-09 06:22] LABS: Glucose,Whole Blood 68 mg/dL (70-110)
[2025-03-09 07:46] LABS: African American GFR (CKD) >90 (>60 ml/min/1.73 sqM); Non-African American GFR(CKD) >90 (>60 ml/min/1.73 sqM)
[2025-03-09] MEDS: VANCOMYCIN TROUGH DUE 1 EACH MISC MISCELLANE ONE (08:46)
--- NOTE | 2025-03-09 09:44 | P.PN ---
Subjective Progress Note Date: 03/09/25 Shaw Bain is a 64-year-old male patient who presented with concerns of right foot cellulitis. Patient reports he has had issues with a callus before but it had completely healed in about a week ago started to come back and he noticed redness and pain over the past few days. Patient denies fever. Patient does have a past medical history of diabetes mellitus. Patient denies any recent injury. Additional medical history includes anemia and glaucoma. Foot x-ray completed in ER showing no acute osseous abnormality of the right foot. Upon exam patient noted to have significant redness to right foot and metatarsal area. At this time patient will be started on IV antibiotics Vanco and Unasyn. Blood culture ordered. Infectious disease services consulted. Patient denies chest pain or shortness of breath. Patient denies nausea vomiting or diarrhea. Patient denies any urinary burning or frequency. Lab work completed showing white blood cell 12.39, hemoglobin 10.8, sodium 134, creatinine 0.90, bun 19. Vital signs temp 98.0, heart rate 85, respiratory rate 18, blood pressure 128/70 with pulse ox 99% on room air On 03/05/2025 patient was seen and examined on the medical floor is alert and has he is complaining of right foot pain swelling and erythema otherwise he denies any complaints at this time has no fever or chills no headache or dizziness no chest pain no shortness of breath no cough no nausea or vomiting no abdominal pain no diarrhea and no urinary symptoms. Vascular surgery consultation was initiated for possible foot debridement, infectious disease following patient is maintained on Unasyn and vancomycin. On 03/06/2025 patient was seen and examined on the medical floor he is alert and oriented x 3 in no apparent distress he is complaining of right foot pain otherwise he denies any complaints there is no fever or chills no headache or dizziness no chest pain no shortness of breath no cough no nausea or vomiting no abdominal pain no diarrhea no urinary symptoms On 03/07/2025 patient was seen and examined on the medical floor he is alert and oriented x 3 in no apparent distress he is complaining of right foot pain, he is also complaining of nausea, otherwise he denies any complaints there is no fever or chills no headache or dizziness no chest pain no shortness of breath no cough no vomiting no abdominal pain no diarrhea no urinary symptoms. On 03/08/2025 patient was seen and examined on the medical floor he is alert and oriented x 3 in no apparent distress, he is complaining of diarrhea otherwise he denies any complaint, pain in the foot is well-controlled no fever or chills no headache or dizziness no chest pain no shortness of breath no cough no nausea or vomiting no abdominal pain no diarrhea no urinary symptoms On 03/09/2025 patient was seen and examined on the medical floor, he is alert and oriented x 3 in no apparent distress, there is no fever or chills no headache or dizziness no chest pain no shortness of breath no cough no nausea or vomiting no abdominal pain no diarrhea and no urinary symptoms, pain in the lower extremities well-tolerated, patient remains on IV antibiotics we are awaiting further recommendation from infectious disease Objective - Vital Signs Vital signs: Vital Signs Temp 97.5 F L 03/09/25 07:02 Pulse 74 03/09/25 07:02 Resp 18 03/09/25 07:02 BP 122/74 03/09/25 07:02 Pulse Ox 98 03/09/25 07:02 FiO2 Intake & Output 03/08/25 03/09/25 03/09/25 18:59 06:59 18:59 Intake Total 540 Output Total 2500 Balance -2500 540 Intake: Oral 540 Output: Urine 2500 Uretheral (Daly) 1600 Other: Voiding Method Indwelling Catheter Indwelling Catheter # Bowel Movements 2 - Exam Head normocephalic Neck supple Lungs clear to auscultation bilaterally no wheezing or crackles Heart regular rate and rhythm S1-S2, no rub or gallop Abdomen is soft nontender nondistended positive bowel sounds no hepatosplenomegaly Extremities no edema. Right foot erythema noted to 1st and 2nd metatarsal Neuro alert and orientated to 3 - Labs CBC & Chem 7: 03/08/25 04:34 03/09/25 07:11 Labs: Abnormal Lab Results - Last 24 Hours (Table) 03/08/25 03/08/25 03/08/25 Range/Units 04:34 11:27 17:32 RBC 3.48 L (4.40-5.60) X 10*6/uL Hgb 10.0 L (13.0-17.0) g/dL Hct 30.3 L (39.6-50.0) % MPV 8.7 L (9.5-12.2) FL Immature Gran # 0.09 H (0.00-0.04) X 10*3/uL POC Glucose (mg/dL) 209 H 129 H (70-110) mg/dL 03/09/25 Range/Units 06:20 RBC (4.40-5.60) X 10*6/uL Hgb (13.0-17.0) g/dL Hct (39.6-50.0) % MPV (9.5-12.2) FL Immature Gran # (0.00-0.04) X 10*3/uL POC Glucose (mg/dL) 68 L (70-110) mg/dL Microbiology - Last 24 Hours (Table) 03/03/25 19:46 Blood Culture - Final Blood 03/05/25 16:21 Anaerobic Culture - Preliminary Foot - Right 03/05/25 16:20 Anaerobic Culture - Preliminary Foot - Right 03/05/25 16:20 Gram Stain - Final Foot - Right Tissue Culture - Final Methicillin resist S. aureus 03/05/25 16:21 Gram Stain - Final Foot - Right Wound Culture - Final Methicillin resist S. aureus Assessment and Plan Assessment: 1. Right foot cellulitis 2. History of diabetes mellitus 3. History of anemia 4. History of glaucoma DVT prophylaxis Lovenox. GI prophylax Protonix patient started on IV antibiotics Blood culture ordered Infectious disease services consulted Repeat labs ordered
[2025-03-09 10:01] LABS: Basophils # (A) 0.08 X 10*3/uL (0.00-0.10); Basophils % (A) 1.2 %; Eosinophils # (A) 0.03 X 10*3/uL (0.04-0.35); Eosinophils % (A) 0.4 %; HCT 31.3 % (39.6-50.0); HGB 10.2 g/dL (13.0-17.0); Immature Grans, Automated 0.90 %; Lymphocytes # (A) 1.47 X 10*3/uL (0.90-5.00); Lymphocytes % (A) 21.6 %; MCH 28.1 pg (27.0-32.0); MCHC 32.6 g/dL (32.0-37.0); MCV 86.2 FL (80.0-97.0); Monocytes # (A) 0.92 X 10*3/uL (0.20-1.00); Monocytes % (A) 13.5 %; NRBC Per 100 WBC 0 X 10*3/uL (0.00-0.01); Neutrophils # (A) 4.25 X 10*3/uL (1.80-7.70); Neutrophils % (A) 62.4 %; Platelet Count 361 X 10*3/uL (140-440); RBC 3.63 X 10*6/uL (4.40-5.60); RDW 12.6 % (11.5-14.5); WBC 6.81 X 10*3/uL (4.50-10.00)
[2025-03-09 10:37] LABS: ALT 18 U/L (10-49); AST 23 U/L (14-35); Albumin 3.3 g/dL (3.8-4.9); Albumin/Globulin Ratio 1.14 Ratio (1.60-3.17); Alkaline Phosphatase 55 U/L (41-126); Anion Gap 11.00 mmol/L (4.00-12.00); BUN/Creat Ratio 9.22 Ratio (12.00-20.00); Blood Urea Nitrogen 8.3 mg/dL (9.0-27.0); Calcium 8.3 mg/dL (8.7-10.3); Carbon Dioxide 25.0 mmol/L (21.6-31.8); Chloride 106 mmol/L (96-109); Globulin 2.9 g/dL (1.6-3.3); Glucose 88 mg/dL (70-110); Potassium 3.1 mmol/L (3.5-5.5); Sodium 142 mmol/L (135-145); Total Protein 6.2 g/dL (6.2-8.2)
[2025-03-09 11:39] LABS: Glucose,Whole Blood 181 mg/dL (70-110)
--- NOTE | 2025-03-09 16:09 | P.PN ---
Subjective Progress Note Date: 03/09/25 Principal diagnosis: Reason for follow-up is right diabetic foot infection/abscess Patient is a 64-year-old male with a past medical history significant for type 2 diabetes mellitus anemia, presenting to the concerning for the right foot pain and swelling patient has been diagnosed with a right diabetic foot infection with infected callus.Patient is status post drainage of the abscess right foot and debridement of the infected callus on 03/05/2025 On today's visit that is 03/09/2025, Patient did have low-grade fever 100.4 last evening however is afebrile this afternoon. Patient is currently on room air and denies having any shortness of breath, the patient denies any chest pain or cough, the patient denies any nausea vomiting did not have any abdominal pain h owever has been complaining of diarrhea. Patient white count 6.81, creatinine 0.82 white count of is 19.4 Objective - Vital Signs Vital signs: Vital Signs Temp 97.5 F L 03/09/25 07:02 Pulse 74 03/09/25 07:02 Resp 18 03/09/25 07:02 BP 122/74 03/09/25 07:02 Pulse Ox 98 03/09/25 07:02 FiO2 Intake & Output 03/08/25 03/09/25 03/09/25 18:59 06:59 18:59 Intake Total 540 Output Total 2500 Balance -2500 540 Intake: Oral 540 Output: Urine 2500 Uretheral (Daly) 1600 Other: Voiding Method Indwelling Catheter Indwelling Catheter Indwelling Catheter # Bowel Movements 2 - Exam GENERAL DESCRIPTION: Middle-age male lying in bed in no distress RESPIRATORY SYSTEM: Unlabored breathing , decreased breath sounds at bases HEART: S1 S2 regular rate and rhythm , ABDOMEN: Soft , no tenderness EXTREMITIES: Right foot wound base with some necrotic tissue but bone is not palpable - Labs CBC & Chem 7: 03/09/25 02:51 03/09/25 07:11 Labs: Abnormal Lab Results - Last 24 Hours (Table) 03/08/25 03/09/25 03/09/25 Range/Units 17:32 02:51 02:51 RBC 3.63 L (4.40-5.60) X 10*6/uL Hgb 10.2 L (13.0-17.0) g/dL Hct 31.3 L (39.6-50.0) % MPV 8.7 L (9.5-12.2) FL Immature Gran # 0.06 H (0.00-0.04) X 10*3/uL Eosinophils # 0.03 L (0.04-0.35) X 10*3/uL Potassium 3.1 L (3.5-5.5) mmol/L BUN 8.3 L (9.0-27.0) mg/dL BUN/Creatinine Ratio 9.22 L (12.00-20.00) Ratio POC Glucose (mg/dL) 129 H (70-110) mg/dL Calcium 8.3 L (8.7-10.3) mg/dL Total Bilirubin 0.2 L (0.3-1.2) mg/dL Albumin 3.3 L (3.8-4.9) g/dL Albumin/Globulin Ratio 1.14 L (1.60-3.17) Ratio 03/09/25 03/09/25 Range/Units 06:20 11:38 RBC (4.40-5.60) X 10*6/uL Hgb (13.0-17.0) g/dL Hct (39.6-50.0) % MPV (9.5-12.2) FL Immature Gran # (0.00-0.04) X 10*3/uL Eosinophils # (0.04-0.35) X 10*3/uL Potassium (3.5-5.5) mmol/L BUN (9.0-27.0) mg/dL BUN/Creatinine Ratio (12.00-20.00) Ratio POC Glucose (mg/dL) 68 L 181 H (70-110) mg/dL Calcium (8.7-10.3) mg/dL Total Bilirubin (0.3-1.2) mg/dL Albumin (3.8-4.9) g/dL Albumin/Globulin Ratio (1.60-3.17) Ratio Microbiology - Last 24 Hours (Table) 03/03/25 19:46 Blood Culture - Final Blood 03/05/25 16:21 Anaerobic Culture - Preliminary Foot - Right 03/05/25 16:20 Anaerobic Culture - Preliminary Foot - Right 03/05/25 16:20 Gram Stain - Final Foot - Right Tissue Culture - Final Methicillin resist S. aureus 03/05/25 16:21 Gram Stain - Final Foot - Right Wound Culture - Final Methicillin resist S. aureus Assessment and Plan (1) Diabetic infection of right foot Current Visit: Yes Status: Acute Code(s): E11.628 - TYPE 2 DIABETES MELLITUS WITH OTHER SKIN COMPLICATIONS; L08.9 - LOCAL INFECTION OF THE SKIN AND SUBCUTANEOUS TISSUE, UNSP SNOMED Code(s): 551069400 (2) Cellulitis of right foot Current Visit: Yes Status: Acute Code(s): L03.115 - CELLULITIS OF RIGHT LOWER LIMB SNOMED Code(s): 14302187663293748 Plan: 1patient presented hospital with right foot pain swelling and redness in this patient who did have a callus on the plantar aspect with evidence of a pustule concerning for infected callus and abscess formation and will need to cover for the polymicrobial vandana SEC to diabetic foot infection 2- vascular surgery has seen the patient and status post debridement of the infected callus and deep culture which are currently pending 3-patient is afebrile cultures currently growing MRSA 4-patient currently being with IV vancomycin while inpatient will discuss with the protective services case worker tomorrow if the patient is getting go to rehab may benefit from a course of IV otherwise we will try oral Zyvox on discharge 5patient with diarrhea we will check a stool culture stool for C. difficile add Questran for symptomatic relief Dictation was produced using [employer] dictation software. please excuse any grammatical, word or spelling errors. Time with Patient: Less than 30
[2025-03-09 16:30] LABS: Glucose,Whole Blood 202 mg/dL (70-110)
[2025-03-09] MEDS: CHOLESTYRAMINE RESIN 4 GM PACKET PO SCH (17:17)
[2025-03-09 20:32] LABS: Glucose,Whole Blood 155 mg/dL (70-110)
--- NOTE | 2025-03-09 20:50 | PN ---
PROGRESS NOTE This patient had infected callus involving the right foot. We excised the callus. The patient is growing MRSA, under care of Infectious Disease. IV antibiotics. We have been changing dressing with Santyl cream. Base of the wound is granulating. No fever or chills present. Continue with Santyl cream. If the patient goes home, he will follow up in [facility]. MMODL / IJN: [id number] /
[2025-03-10 02:17] LABS: Glucose,Whole Blood 150 mg/dL (70-110)
[2025-03-10 06:11] LABS: Glucose,Whole Blood 150 mg/dL (70-110)
[2025-03-10 07:52] LABS: Basophils # (A) 0.05 X 10*3/uL (0.00-0.10); Basophils % (A) 0.8 %; Eosinophils # (A) 0.30 X 10*3/uL (0.04-0.35); Eosinophils % (A) 4.7 %; HCT 27.9 % (39.6-50.0); HGB 9.2 g/dL (13.0-17.0); Immature Grans, Automated 0.90 %; Lymphocytes # (A) 1.69 X 10*3/uL (0.90-5.00); Lymphocytes % (A) 26.3 %; MCH 28.3 pg (27.0-32.0); MCHC 33.0 g/dL (32.0-37.0); MCV 85.8 FL (80.0-97.0); Monocytes # (A) 0.85 X 10*3/uL (0.20-1.00); Monocytes % (A) 13.2 %; NRBC Per 100 WBC 0 X 10*3/uL (0.00-0.01); Neutrophils # (A) 3.48 X 10*3/uL (1.80-7.70); Neutrophils % (A) 54.1 %; Platelet Count 351 X 10*3/uL (140-440); RBC 3.25 X 10*6/uL (4.40-5.60); RDW 12.7 % (11.5-14.5); WBC 6.43 X 10*3/uL (4.50-10.00)
[2025-03-10 08:00] LABS: ALT 17 U/L (10-49); AST 19 U/L (14-35); Albumin 3.2 g/dL (3.8-4.9); Albumin/Globulin Ratio 1.28 Ratio (1.60-3.17); Alkaline Phosphatase 49 U/L (41-126); Anion Gap 11.00 mmol/L (4.00-12.00); BUN/Creat Ratio 10.33 Ratio (12.00-20.00); Blood Urea Nitrogen 9.3 mg/dL (9.0-27.0); Calcium 8.1 mg/dL (8.7-10.3); Carbon Dioxide 23.0 mmol/L (21.6-31.8); Chloride 104 mmol/L (96-109); Globulin 2.5 g/dL (1.6-3.3); Glucose 126 mg/dL (70-110); Potassium 3.3 mmol/L (3.5-5.5); Sodium 138 mmol/L (135-145); Total Protein 5.7 g/dL (6.2-8.2)
[2025-03-10 11:25] LABS: Glucose,Whole Blood 223 mg/dL (70-110)
[2025-03-10 16:43] LABS: Glucose,Whole Blood 155 mg/dL (70-110)
--- NOTE | 2025-03-10 17:20 | P.PN ---
Subjective Progress Note Date: 03/10/25 Shaw Bain is a 64-year-old male patient who presented with concerns of right foot cellulitis. Patient reports he has had issues with a callus before but it had completely healed in about a week ago started to come back and he noticed redness and pain over the past few days. Patient denies fever. Patient does have a past medical history of diabetes mellitus. Patient denies any recent injury. Additional medical history includes anemia and glaucoma. Foot x-ray completed in ER showing no acute osseous abnormality of the right foot. Upon exam patient noted to have significant redness to right foot and metatarsal area. At this time patient will be started on IV antibiotics Vanco and Unasyn. Blood culture ordered. Infectious disease services consulted. Patient denies chest pain or shortness of breath. Patient denies nausea vomiting or diarrhea. Patient denies any urinary burning or frequency. Lab work completed showing white blood cell 12.39, hemoglobin 10.8, sodium 134, creatinine 0.90, bun 19. Vital signs temp 98.0, heart rate 85, respiratory rate 18, blood pressure 128/70 with pulse ox 99% on room air On 03/05/2025 patient was seen and examined on the medical floor is alert and has he is complaining of right foot pain swelling and erythema otherwise he denies any complaints at this time has no fever or chills no headache or dizziness no chest pain no shortness of breath no cough no nausea or vomiting no abdominal pain no diarrhea and no urinary symptoms. Vascular surgery consultation was initiated for possible foot debridement, infectious disease following patient is maintained on Unasyn and vancomycin. On 03/06/2025 patient was seen and examined on the medical floor he is alert and oriented x 3 in no apparent distress he is complaining of right foot pain otherwise he denies any complaints there is no fever or chills no headache or dizziness no chest pain no shortness of breath no cough no nausea or vomiting no abdominal pain no diarrhea no urinary symptoms On 03/07/2025 patient was seen and examined on the medical floor he is alert and oriented x 3 in no apparent distress he is complaining of right foot pain, he is also complaining of nausea, otherwise he denies any complaints there is no fever or chills no headache or dizziness no chest pain no shortness of breath no cough no vomiting no abdominal pain no diarrhea no urinary symptoms. On 03/08/2025 patient was seen and examined on the medical floor he is alert and oriented x 3 in no apparent distress, he is complaining of diarrhea otherwise he denies any complaint, pain in the foot is well-controlled no fever or chills no headache or dizziness no chest pain no shortness of breath no cough no nausea or vomiting no abdominal pain no diarrhea no urinary symptoms On 03/09/2025 patient was seen and examined on the medical floor, he is alert and oriented x 3 in no apparent distress, there is no fever or chills no headache or dizziness no chest pain no shortness of breath no cough no nausea or vomiting no abdominal pain no diarrhea and no urinary symptoms, pain in the lower extremities well-tolerated, patient remains on IV antibiotics we are awaiting further recommendation from infectious disease On 03/10/2025 patient was seen and examined on the medical floor he is alert and oriented x 3 in no apparent distress there is no fever or chills no headache or dizziness no chest pain no shortness of breath no cough no nausea or vomiting no abdominal pain he is complaining of severe diarrhea otherwise he denies any complaint Objective - Vital Signs Vital signs: Vital Signs Temp 98.1 F 03/10/25 14:00 Pulse 78 03/10/25 14:00 Resp 18 03/10/25 14:00 BP 139/77 03/10/25 14:00 Pulse Ox 98 03/10/25 14:00 FiO2 Intake & Output 03/09/25 03/10/25 03/10/25 18:59 06:59 18:59 Intake Total 1080 Output Total 302 1500 Balance -302 -420 Intake: Oral 1080 Output: Urine 300 1500 Uretheral (Daly) 300 Stool 2 Other: Voiding Method Indwelling Catheter Indwelling Catheter Indwelling Catheter - Exam Head normocephalic Neck supple Lungs clear to auscultation bilaterally no wheezing or crackles Heart regular rate and rhythm S1-S2, no rub or gallop Abdomen is soft nontender nondistended positive bowel sounds no hepatosplenomegaly Extremities no edema. Right foot erythema noted to 1st and 2nd metatarsal Neuro alert and orientated to 3 - Labs CBC & Chem 7: 03/10/25 03:02 03/10/25 03:02 Labs: Abnormal Lab Results - Last 24 Hours (Table) 03/09/25 03/10/25 03/10/25 Range/Units 20:30 02:15 03:02 RBC 3.25 L (4.40-5.60) X 10*6/uL Hgb 9.2 L (13.0-17.0) g/dL Hct 27.9 L (39.6-50.0) % MPV 9.0 L (9.5-12.2) FL Immature Gran # 0.06 H (0.00-0.04) X 10*3/uL Potassium (3.5-5.5) mmol/L BUN/Creatinine Ratio (12.00-20.00) Ratio Glucose (70-110) mg/dL POC Glucose (mg/dL) 155 H 150 H (70-110) mg/dL Calcium (8.7-10.3) mg/dL Total Bilirubin (0.3-1.2) mg/dL Total Protein (6.2-8.2) g/dL Albumin (3.8-4.9) g/dL Albumin/Globulin Ratio (1.60-3.17) Ratio 03/10/25 03/10/25 03/10/25 Range/Units 03:02 06:09 11:23 RBC (4.40-5.60) X 10*6/uL Hgb (13.0-17.0) g/dL Hct (39.6-50.0) % MPV (9.5-12.2) FL Immature Gran # (0.00-0.04) X 10*3/uL Potassium 3.3 L (3.5-5.5) mmol/L BUN/Creatinine Ratio 10.33 L (12.00-20.00) Ratio Glucose 126 H (70-110) mg/dL POC Glucose (mg/dL) 150 H 223 H (70-110) mg/dL Calcium 8.1 L (8.7-10.3) mg/dL Total Bilirubin <0.2 L (0.3-1.2) mg/dL Total Protein 5.7 L (6.2-8.2) g/dL Albumin 3.2 L (3.8-4.9) g/dL Albumin/Globulin Ratio 1.28 L (1.60-3.17) Ratio 03/10/25 Range/Units 16:38 RBC (4.40-5.60) X 10*6/uL Hgb (13.0-17.0) g/dL Hct (39.6-50.0) % MPV (9.5-12.2) FL Immature Gran # (0.00-0.04) X 10*3/uL Potassium (3.5-5.5) mmol/L BUN/Creatinine Ratio (12.00-20.00) Ratio Glucose (70-110) mg/dL POC Glucose (mg/dL) 155 H (70-110) mg/dL Calcium (8.7-10.3) mg/dL Total Bilirubin (0.3-1.2) mg/dL Total Protein (6.2-8.2) g/dL Albumin (3.8-4.9) g/dL Albumin/Globulin Ratio (1.60-3.17) Ratio Microbiology - Last 24 Hours (Table) 03/05/25 16:20 Anaerobic Culture - Final Foot - Right 03/05/25 16:21 Anaerobic Culture - Final Foot - Right 03/04/25 13:21 Blood Culture - Final Blood Assessment and Plan Assessment: 1. Right foot cellulitis 2. History of diabetes mellitus 3. History of anemia 4. History of glaucoma DVT prophylaxis Lovenox. GI prophylax Protonix patient started on IV antibiotics Blood culture ordered Infectious disease services consulted Repeat labs ordered
[2025-03-10 20:39] LABS: Glucose,Whole Blood 180 mg/dL (70-110)
[2025-03-11 01:55] LABS: Glucose,Whole Blood 174 mg/dL (70-110)
[2025-03-11 06:05] LABS: Glucose,Whole Blood 132 mg/dL (70-110)
[2025-03-11] MEDS: VANCOMYCIN 1,000 MG in SODIUM CHLORIDE 0.9% 250 ML IVPB SCH (07:55)
[2025-03-11] MEDS: POTASSIUM CHLORIDE ER 20 MEQ TAB.ER PO SCH ×2 (11:12→15:24)
[2025-03-11 11:33] LABS: Glucose,Whole Blood 170 mg/dL (70-110)
--- NOTE | 2025-03-11 12:22 | P.PN ---
Subjective Progress Note Date: 03/10/25 Principal diagnosis: Reason for follow-up is right diabetic foot infection/abscess Patient is a 64-year-old male with a past medical history significant for type 2 diabetes mellitus anemia, presenting to the concerning for the right foot pain and swelling patient has been diagnosed with a right diabetic foot infection with infected callus.Patient is status post drainage of the abscess right foot and debridement of the infected callus on 03/05/2025 On today's visit that is 03/10/2025, patient has been afebrile, patient is breathing comfortably and is currently on room air, patient denies having any chest pain and cough, patient denies nausea vomiting no abdominal pain circumventing of some diarrhea denies pain to the foot. Patient did have white count 6.43 creatinine 0.9 stool for C. difficile has been negative stool culture currently pending Objective - Vital Signs Vital signs: Vital Signs Temp 98.1 F 03/10/25 14:00 Pulse 78 03/10/25 14:00 Resp 18 03/10/25 14:00 BP 139/77 03/10/25 14:00 Pulse Ox 98 03/10/25 14:00 FiO2 Intake & Output 03/09/25 03/10/25 03/10/25 18:59 06:59 18:59 Intake Total 1080 Output Total 302 1500 Balance -302 -420 Intake: Oral 1080 Output: Urine 300 1500 Uretheral (Daly) 300 Stool 2 Other: Voiding Method Indwelling Catheter Indwelling Catheter Indwelling Catheter - Exam GENERAL DESCRIPTION: Middle-age male lying in bed in no distress RESPIRATORY SYSTEM: Unlabored breathing , decreased breath sounds at bases HEART: S1 S2 regular rate and rhythm , ABDOMEN: Soft , no tenderness EXTREMITIES: Right foot wound base with some necrotic tissue but bone is not palpable - Labs CBC & Chem 7: 03/10/25 03:02 03/10/25 03:02 Labs: Abnormal Lab Results - Last 24 Hours (Table) 03/09/25 03/10/25 03/10/25 Range/Units 20:30 02:15 03:02 RBC 3.25 L (4.40-5.60) X 10*6/uL Hgb 9.2 L (13.0-17.0) g/dL Hct 27.9 L (39.6-50.0) % MPV 9.0 L (9.5-12.2) FL Immature Gran # 0.06 H (0.00-0.04) X 10*3/uL Potassium (3.5-5.5) mmol/L BUN/Creatinine Ratio (12.00-20.00) Ratio Glucose (70-110) mg/dL POC Glucose (mg/dL) 155 H 150 H (70-110) mg/dL Calcium (8.7-10.3) mg/dL Total Bilirubin (0.3-1.2) mg/dL Total Protein (6.2-8.2) g/dL Albumin (3.8-4.9) g/dL Albumin/Globulin Ratio (1.60-3.17) Ratio 03/10/25 03/10/25 03/10/25 Range/Units 03:02 06:09 11:23 RBC (4.40-5.60) X 10*6/uL Hgb (13.0-17.0) g/dL Hct (39.6-50.0) % MPV (9.5-12.2) FL Immature Gran # (0.00-0.04) X 10*3/uL Potassium 3.3 L (3.5-5.5) mmol/L BUN/Creatinine Ratio 10.33 L (12.00-20.00) Ratio Glucose 126 H (70-110) mg/dL POC Glucose (mg/dL) 150 H 223 H (70-110) mg/dL Calcium 8.1 L (8.7-10.3) mg/dL Total Bilirubin <0.2 L (0.3-1.2) mg/dL Total Protein 5.7 L (6.2-8.2) g/dL Albumin 3.2 L (3.8-4.9) g/dL Albumin/Globulin Ratio 1.28 L (1.60-3.17) Ratio 03/10/25 Range/Units 16:38 RBC (4.40-5.60) X 10*6/uL Hgb (13.0-17.0) g/dL Hct (39.6-50.0) % MPV (9.5-12.2) FL Immature Gran # (0.00-0.04) X 10*3/uL Potassium (3.5-5.5) mmol/L BUN/Creatinine Ratio (12.00-20.00) Ratio Glucose (70-110) mg/dL POC Glucose (mg/dL) 155 H (70-110) mg/dL Calcium (8.7-10.3) mg/dL Total Bilirubin (0.3-1.2) mg/dL Total Protein (6.2-8.2) g/dL Albumin (3.8-4.9) g/dL Albumin/Globulin Ratio (1.60-3.17) Ratio Microbiology - Last 24 Hours (Table) 03/05/25 16:20 Anaerobic Culture - Final Foot - Right 03/05/25 16:21 Anaerobic Culture - Final Foot - Right 03/04/25 13:21 Blood Culture - Final Blood Assessment and Plan (1) Diabetic infection of right foot Current Visit: Yes Status: Acute Code(s): E11.628 - TYPE 2 DIABETES MELLITUS WITH OTHER SKIN COMPLICATIONS; L08.9 - LOCAL INFECTION OF THE SKIN AND SUBCUTANEOUS TISSUE, UNSP SNOMED Code(s): 277889433 (2) Cellulitis of right foot Current Visit: Yes Status: Acute Code(s): L03.115 - CELLULITIS OF RIGHT LOWER LIMB SNOMED Code(s): 42955303260990203 Plan: 1patient presented hospital with right foot pain swelling and redness in this patient who did have a callus on the plantar aspect with evidence of a pustule concerning for infected callus and abscess formation and will need to cover for the polymicrobial vandana SEC to diabetic foot infection 2- vascular surgery has seen the patient and status post debridement of the infected callus and deep culture which are currently pending 3-patient is afebrile cultures currently growing MRSA 4-patient currently being with IV vancomycin while inpatient patient at this time did to go home and started going to rehab hence we will consider oral Zyvox on discharge 5patient with diarrhea stool for C. difficile has been negative we will continue with the Questran for symptomatic relief Dictation was produced using [employer] dictation software. please excuse any grammatical, word or spelling errors. Time with Patient: Less than 30
--- NOTE | 2025-03-11 12:23 | P.PN ---
Subjective Progress Note Date: 03/11/25 Principal diagnosis: Reason for follow-up is right diabetic foot infection/abscess Patient is a 64-year-old male with a past medical history significant for type 2 diabetes mellitus anemia, presenting to the concerning for the right foot pain and swelling patient has been diagnosed with a right diabetic foot infection with infected callus.Patient is status post drainage of the abscess right foot and debridement of the infected callus on 03/05/2025 On today's visit that is 03/11/2025, Patient is afebrile this morning patient denies having any chest pain shortness of breath or cough, the patient is currently on room air, patient denies any abdominal pain no nausea no vomiting and mention improvement in his diarrhea. No new lab has been obtained today Objective - Vital Signs Vital signs: Vital Signs Temp 97.7 F 03/11/25 07:29 Pulse 68 03/11/25 07:29 Resp 17 03/11/25 07:29 BP 141/77 03/11/25 07:29 Pulse Ox 99 03/11/25 07:29 FiO2 Intake & Output 03/10/25 03/11/25 03/11/25 18:59 06:59 18:59 Output Total 400 752 Balance -400 -752 Output: Urine 400 750 Stool 2 Other: Voiding Method Indwelling Catheter Indwelling Catheter Indwelling Catheter # Voids 1 # Bowel Movements 5 - Exam GENERAL DESCRIPTION: Middle-age male lying in bed in no distress RESPIRATORY SYSTEM: Unlabored breathing , decreased breath sounds at bases HEART: S1 S2 regular rate and rhythm , ABDOMEN: Soft , no tenderness EXTREMITIES: Right foot wound base with some necrotic tissue but bone is not pal pable - Labs CBC & Chem 7: 03/10/25 03:02 03/10/25 03:02 Labs: Abnormal Lab Results - Last 24 Hours (Table) 03/10/25 03/10/25 03/11/25 Range/Units 16:38 20:38 01:53 POC Glucose (mg/dL) 155 H 180 H 174 H (70-110) mg/dL 03/11/25 03/11/25 Range/Units 06:04 11:31 POC Glucose (mg/dL) 132 H 170 H (70-110) mg/dL Microbiology - Last 24 Hours (Table) 03/09/25 18:30 Stool Culture - Preliminary Stool 03/05/25 16:20 Anaerobic Culture - Final Foot - Right 03/05/25 16:21 Anaerobic Culture - Final Foot - Right Assessment and Plan (1) Diabetic infection of right foot Current Visit: Yes Status: Acute Code(s): E11.628 - TYPE 2 DIABETES MELLITUS WITH OTHER SKIN COMPLICATIONS; L08.9 - LOCAL INFECTION OF THE SKIN AND SUBCUTANEOUS TISSUE, UNSP SNOMED Code(s): 504834860 (2) Cellulitis of right foot Current Visit: Yes Status: Acute Code(s): L03.115 - CELLULITIS OF RIGHT LOWER LIMB SNOMED Code(s): 08148337950566529 Plan: 1patient presented hospital with right foot pain swelling and redness in this patient who did have a callus on the plantar aspect with evidence of a pustule concerning for infected callus and abscess formation and will need to cover for the polymicrobial vandana SEC to diabetic foot infection 2- vascular surgery has seen the patient and status post debridement of the infected callus and deep culture which are currently pending 3-patient is afebrile cultures currently growing MRSA 4-patient with diarrhea stool for C. difficile has been negative patient mention improvement in the diarrhea to continue with the Questran prescription sent to the pharmacy advised to take it 3 hours apart from other medication 5patient has received adequate IV vancomycin will consider a 2-week course of oral Zyvox prescription sent to the pharmacy and close outpatient follow-up Dictation was produced using [employer] dictation software. please excuse any grammatical, word or spelling errors. Time with Patient: Less than 30
[2025-03-11 13:25] VITALS: BP 128/81; PULSE 100; TEMP 98
--- NOTE | 2025-03-11 13:28 | P.DS ---
Providers Date of admission: 03/03/25 20:53 Expected date of discharge: 03/11/25 Attending physician: Beverly Paula Consults: 03/03/25 20:52 Consult Physician Urgent Consulting Provider: Ofe Harden Consult Reason/Comments: Cellulitis right foot Do you want consulting provider notified?: Yes 03/04/25 14:11 Consult Physician Routine Consulting Provider: Eleuterio Mckeon Consult Reason/Comments: frances catheter Do you want consulting provider notified?: Yes 03/04/25 14:33 Consult Physician Routine Consulting Provider: Emmanuel Jacobson Consult Reason/Comments: foot abscess, debridemnt and deep cultures Do you want consulting provider notified?: Yes Primary care physician: Beverly Paula [facility] Course: Discharge diagnosis 1. Right foot cellulitis status post drainage of right foot abscess and debridement of infected callus on 03/05/2025 2. History of diabetes mellitus 3. History of anemia 4. History of glaucoma Hospital course Shaw Bain is a 64-year-old male patient who presented with concerns of right foot cellulitis. Patient reports he has had issues with a callus before but it had completely healed in about a week ago started to come back and he noticed redness and pain over the past few days. Patient denies fever. Patient does have a past medical history of diabetes mellitus. Patient denies any recent injury. Additional medical history includes anemia and glaucoma. Foot x-ray completed in ER showing no acute osseous abnormality of the right foot. Upon exam patient noted to have significant redness to right foot and metatarsal area. At this time patient will be started on IV antibiotics Vanco and Unasyn. Blood culture ordered. Infectious disease services consulted. Patient denies chest pain or shortness of breath. Patient denies nausea vomiting or diarrhea. Patient denies any urinary burning or frequency. Lab work completed showing white blood cell 12.39, hemoglobin 10.8, sodium 134, creatinine 0.90, bun 19. Vital signs temp 98.0, heart rate 85, respiratory rate 18, blood pressure 128/70 with pulse ox 99% on room air On 03/05/2025 patient was seen and examined on the medical floor is alert and has he is complaining of right foot pain swelling and erythema otherwise he denies any complaints at this time has no fever or chills no headache or dizziness no chest pain no shortness of breath no cough no nausea or vomiting no abdominal pain no diarrhea and no urinary symptoms. Vascular surgery consultation was initiated for possible foot debridement, infectious disease following patient is maintained on Unasyn and vancomycin. On 03/06/2025 patient was seen and examined on the medical floor he is alert and oriented x 3 in no apparent distress he is complaining of right foot pain otherwise he denies any complaints there is no fever or chills no headache or dizziness no chest pain no shortness of breath no cough no nausea or vomiting no abdominal pain no diarrhea no urinary symptoms On 03/07/2025 patient was seen and examined on the medical floor he is alert and oriented x 3 in no apparent distress he is complaining of right foot pain, he is also complaining of nausea, otherwise he denies any complaints there is no fever or chills no headache or dizziness no chest pain no shortness of breath no cough no vomiting no abdominal pain no diarrhea no urinary symptoms. On 03/08/2025 patient was seen and examined on the medical floor he is alert and oriented x 3 in no apparent distress, he is complaining of diarrhea otherwise he denies any complaint, pain in the foot is well-controlled no fever or chills no headache or dizziness no chest pain no shortness of breath no cough no nausea or vomiting no abdominal pain no diarrhea no urinary symptoms On 03/09/2025 patient was seen and examined on the medical floor, he is alert and oriented x 3 in no apparent distress, there is no fever or chills no headache or dizziness no chest pain no shortness of breath no cough no nausea or vomiting no abdominal pain no diarrhea and no urinary symptoms, pain in the lower extremities well-tolerated, patient remains on IV antibiotics we are awaiting further recommendation from infectious disease On 03/10/2025 patient was seen and examined on the medical floor he is alert and oriented x 3 in no apparent distress there is no fever or chills no headache or dizziness no chest pain no shortness of breath no cough no nausea or vomiting no abdominal pain he is complaining of severe diarrhea otherwise he denies any complaint On 03/11/2025 patient is alert and oriented x 3. Stool for C. difficile negative. At this time patient denies chest pain or shortness of breath. Patient denies nausea vomiting or diarrhea. Patient denies any urinary burning or frequency. Per infectious disease patient will be discharged on Zyvox and Questran. Patient to follow-up with PCP and consulting providers for further management Patient Condition at Discharge: Stable Plan - Discharge Summary Discharge Rx Participant: No New Discharge Prescriptions: New Cholestyramine (with Sugar) [Questran Powder] 4 gm PO BID #20 each Linezolid [Zyvox] 600 mg PO Q12H #28 tab Continue metFORMIN HCL 1,000 mg PO BID Multivitamins, Thera [Multivitamin (formulary)] 1 tab PO DAILY Latanoprost [Latanoprost 0.005%] 1 drop BOTH EYES HS glipiZIDE [Glucotrol] 5 mg PO AC-BRKFST Insulin Glargine,Hum.rec.anlog [Lantus Solostar Pen] 10 - 20 units SQ HS Discharge Medication List Insulin Glargine,Hum.rec.anlog [Lantus Solostar Pen] 10 - 20 units SQ HS 03/04/25 [History] Latanoprost [Latanoprost 0.005%] 1 drop BOTH EYES HS 03/04/25 [History] Multivitamins, Thera [Multivitamin (formulary)] 1 tab PO DAILY 03/04/25 [History] glipiZIDE [Glucotrol] 5 mg PO AC-BRKFST 03/04/25 [History] metFORMIN HCL 1,000 mg PO BID 03/04/25 [History] Cholestyramine (with Sugar) [Questran Powder] 4 gm PO BID #20 each 03/11/25 [Rx] Linezolid [Zyvox] 600 mg PO Q12H #28 tab 03/11/25 [Rx] Follow up Appointment(s)/Referral(s): [facility] [NON-STAFF] - As Needed (walker) Nacho Molina MD [REFERRING] - 1 Week Beverly Paula MD [Primary Care Provider] - 1-2 days Ofe Harden MD [STAFF PHYSICIAN] - 1 Week Matias Zelaya MD [STAFF PHYSICIAN] - 2 Weeks Jazmin Salas [NON-STAFF] - As Needed (Offloading boot) Discharge Disposition: HOME WITH HOME HEALTH SERVICES
[2025-03-11 13:38] VITALS: RESP 17
--- NOTE | 2025-03-11 16:12 | P.PN ---
Progress Note - Text 64-year-old gentleman patient came with a right foot infected callus patient was taken the operating room we excised the callus and we will treating with Santyl cream and local wound care patient is under care of infectious disease IV antibiotic patient has no fever chills the wound is granulating most likely patient will go home I will follow him in my office on Monday discussed with the patient he understood
[2025-03-12] MEDS ORDERED: VANCOMYCIN TROUGH DUE 1 EACH MISC MISCELLANE ONE (07:00)
== END 2025-03-11 17:51 | disposition home health service (06) | DRG 623 ==
LOC: EC 14:28 → 1SOBS 20:53 → 4SSUR 03-05 15:41
PROVIDERS: ADMIT Internal Medicine; ATTEND Internal Medicine
PROC: 0JBQ0ZZ Excision of Right Foot Subcutaneous Tissue and Fascia, Open Approach (ICD-10-PCS; principal; 2025-03-05 10:50)
DX: E11.628 Type 2 diabetes mellitus with other skin complications (principal); L03.115 Cellulitis of right lower limb; L97.519 Non-pressure chronic ulcer of other part of right foot with unspecified severity; E11.621 Type 2 diabetes mellitus with foot ulcer; D64.9 Anemia, unspecified; L84 Corns and callosities; N31.9 Neuromuscular dysfunction of bladder, unspecified; W19.XXXA Unspecified fall, initial encounter; Z79.84 Long term (current) use of oral hypoglycemic drugs; H40.9 Unspecified glaucoma
CPT/HCPCS: 36415; 80048; 80053; 80202; 82565; 83036; 83605; 84132; 85025; 85610; 85730; 87040; 87045; 87046; 87070; 87075; 87077; 87186; 87205; 87324; 87493; 96365; 96366; 96367; 99291